=== PATIENT | female | born 1965 | race Caucasian/White ===

== ENCOUNTER 2017-11-19 10:42 | Inpatient (IN) | payer BC, SELFPAY ==
[2017-11-19 12:20] LABS: Absolute Lymphocytes (CBC) 1.5 K/uL (0.7-4.9); Absolute Monocytes 0.7 K/uL (0.1-1.3); Absolute Neutrophil 11.3 K/uL (1.8-8.0); Basophils % 0.5 % (0-1.3); Eosinophils % 0.9 % (0-4.4); Hematocrit 40.8 % (36.0-45.0); Lymphocytes % 10.7 % (15.3-44.8); MCH 26.6 pg (27.0-35.0); MCV 83.8 fL (80-100); Monocytes % 5.2 % (3.3-12.3); RBC Red Blood Cell Count 4.87 M/uL (3.86-4.86)
[2017-11-19 12:29] LABS: Potassium 3.6 mEq/L (3.6-5.0)
[2017-11-19] MEDS ORDERED: CEFTRIAXONE/SWI 1gm 1 GM/10 ML SYR ONE (12:29)
[2017-11-19] MEDS ORDERED: CLINDAMYCIN 900MG/D5W 900 MG/50 ML BAG IV ONE (12:29)
[2017-11-19] MEDS ORDERED: ACETAMINOPHEN 500 MG TAB ONE (12:29)
[2017-11-19] MEDS ORDERED: ACETAMINOPHEN 500 MG TAB PO PRN (12:41)
[2017-11-19] MEDS ORDERED: ONDANSETRON 4 MG/2 ML VIAL IV PRN (12:41)
--- NOTE | 2017-11-19 13:02 | RAD REPORT ---
EXAM DESCRIPTION: [facility] [employer]11/19/2017 12:43 pm CLINICAL HISTORY: Right arm pain COMPARISON: 2017 FINDINGS: The right internal jugular, right subclavian, right cephalic, right axillary, right brach ial, right basilic, right ulnar and right radial veins are generally compressible and demonstrate au gmentation. Doppler demonstrates good flow. IMPRESSION: No evidence of thrombus within the veins of the right upper extremity
[2017-11-19] MEDS ORDERED: PANTOPRAZOLE 40MG TABLET PO ONE (13:04)
--- NOTE | 2017-11-19 13:24 | EDPHYS ---
Physician Documentation [facility] Name: Jerilyn Johnson Age: 52 yrs Sex: Female : 1965 Arrival Date: 11/19/2017 Time: 10:47 Bed 5 Private MD: ED Physician Shaan Schulz HPI: 11/19 13:01 This 52 yrs old Female presents to ER via Ambulatory with complaints of gs CELLULITIS. 13:01 The patient presents with cellulitis of the right arm. Description: erythematous. gs Onset: The symptoms/episode began/occurred 2 day(s) ago, and became worse and became persistent. Associated signs and symptoms: Pertinent positives: erythema, Pertinent negatives: fever. Modifying factors: the symptoms are aggravated by touching. Severity of symptoms: At their worst the symptoms were severe, in the emergency department the symptoms are unchanged. The patient has experienced similar episodes in the past, a few times. 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 - Social history:: Smoking status: Patient/guardian denies using tobacco. ROS: 13:01 All other systems are negative. gs Exam: 13:01 Head/Face: Normocephalic, atraumatic. Eyes: Pupils equal round and reactive to light, gs extra-ocular motions intact. Lids and lashes normal. Conjunctiva and sclera are non-icteric and not injected. Cornea within normal limits. Periorbital areas with no swelling, redness, or edema. ENT: Nares patent. No nasal discharge, no septal abnormalities noted. Tympanic membranes are normal and external auditory canals are clear. Oropharynx with no redness, swelling, or masses, exudates, or evidence of obstruction, uvula midline. Mucous membranes moist. Neck: Trachea midline, no thyromegaly or masses palpated, and no cervical lymphadenopathy. Supple, full range of motion without nuchal rigidity, or vertebral point tenderness. No Meningismus. Chest/axilla: Normal chest wall appearance and motion. Nontender with no deformity. No lesions are appreciated. Cardiovascular: Regular rate and rhythm with a normal S1 and S2. No gallops, murmurs, or rubs. Normal PMI, no JVD. No pulse deficits. Respiratory: Lungs have equal breath sounds bilaterally, clear to auscultation and percussion. No rales, rhonchi or wheezes noted. No increased work of breathing, no retractions or nasal flaring. Abdomen/GI: Soft, non-tender, with normal bowel sounds. No distension or tympany. No guarding or rebound. No evidence of tenderness throughout. Neuro: Awake and alert, GCS 15, oriented to person, place, time, and situation. Cranial nerves II-XII grossly intact. Motor strength 5/5 in all extremities. Sensory grossly intact. Cerebellar exam normal. Normal gait. 13:01 Constitutional: The patient appears alert, awake. 13:01 Skin: cellulitis, that is moderate, on the right arm. 13:01 Musculoskeletal/extremity: ROM: no acute changes, Pulses: are normal with no gs appreciated deficits, Sensation intact. 13:01 Musculoskeletal/extremity: ROM: limited active range of motion due to pain, limited passive range of motion due to pain, in the right arm, Compartment Syndrome exam of affected extremity: is normal. Vital Signs: 11:24 BP 142 / 88; Pulse 106; Resp 16; Temp 98.3(TE); Pulse Ox 100% ; Weight 72.12 kg (R); lk1 Height 5 ft. 3 in. (160.02 cm) (R); Pain 10/10; 12:00 BP 165 / 83; Pulse 93; Resp 16; Pulse Ox 99% ; Pain 10/10; jl7 13:00 BP 140 / 80; Pulse 90; Resp 16; Pulse Ox 100% ; jl7 13:56 BP 133 / 71; Pulse 87; Resp 16; Pulse Ox 100% ; Pain 8/10; jl7 11:24 Body Mass Index 28.17 (72.12 kg, 160.02 cm) lk1 MDM: 11:56 Patient medically screened. 13:01 Differential diagnosis: cellulitis, dvt, lymphangitis. Data reviewed: vital signs, nurses notes. Response to treatment: the patient's symptoms have mildly improved after treatment, and as a result, I will admit patient. 11/19 12:04 Order name: Basic Metabolic Panel; Complete Time: 12:36 11/19 12:04 Order name: Blood Culture Adult (2) 11/19 12:04 Order name: CBC with Diff; Complete Time: 12:36 11/19 12:04 Order name: Procalcitonin; Complete Time: 13:24 11/19 12:47 Order name: Basic Metabolic Panel EDMS 11/19 12:47 Order name: Basic Metabolic Panel EDMS 11/19 12:12 Order name: US Extremity Venous Unilateral Ltd; Complete Time: 13:24 11/19 12:47 Order name: Basic Metabolic Panel EDMS 11/19 12:47 Order name: Basic Metabolic Panel EDMS 11/19 12:47 Order name: CBC with Automated Diff EDMS 11/19 12:47 Order name: CBC with Automated Diff EDMS 11/19 12:47 Order name: CBC with Automated Diff EDMS 11/19 12:47 Order name: CBC with Automated Diff EDMS 11/19 12:04 Order name: Accucheck; Complete Time: 12:33 11/19 12:04 Order name: Cardiac monitoring; Complete Time: 12:33 11/19 12:04 Order name: EKG - Nurse/Tech; Complete Time: 12:33 11/19 12:04 Order name: IV Saline Lock - Large Bore; Complete Time: 12:33 11/19 12:04 Order name: Labs collected and sent; Complete Time: 12:33 11/19 12:04 Order name: O2 Per Protocol; Complete Time: 12:33 11/19 12:04 Order name: O2 Sat Monitoring; Complete Time: 12:33 11/19 12:47 Order name: CONS Pharmacy Consult [facility] 11/19 12:47 Order name: Heart Healthy EDMS Administered Medications: 12:55 Drug: Rocephin - (cefTRIAXone) 1 grams Route: IVPB; Infused Over: 30 mins; Site: left jl7 antecubital; 12:58 Follow up: Response: No adverse reaction; IV Status: Completed infusion jl7 13:00 Drug: Clindamycin 900 mg Route: IVPB; Infused Over: 30 mins; Site: left antecubital; jl7 13:30 Follow up: Response: No adverse reaction; IV Status: Completed infusion 7 13:07 Drug: Acetaminophen 1000 mg Route: PO; jl7 14:00 Follow up: Response: Pain is decreased 13:08 Drug: ProTONIX 40 mg Route: PO; jl7 14:00 Follow up: Response: No adverse reaction jl7 Disposition: 11/19/17 13:24 Hospitalization ordered by Keri Montgomery for Inpatient Admission. Preliminary diagnosis is Cellulitis of right upper limb. - Bed requested for Telemetry/MedSurg (Inpatient). - Status is Inpatient Admission. ae1 - Condition is Stable. - Problem is new. - Symptoms are unchanged. UTI on Admission? No Signatures: Dispatcher [employer] EDMS Bronwyn Forbes Leah, RN RN lk1 Jono Mcmillan RN RN ae1 Jackelny Alford RN RN jl7 Shaan Schulz MD MD gs Corrections: (The following items were deleted from the chart) 14:26 13:24 Hospitalization Ordered by Keri Montgomery MD for Inpatient Admission. Preliminary bd diagnosis is Cellulitis of right upper limb. Bed requested for Telemetry/MedSurg (Inpatient). Status is Inpatient Admission. Condition is Stable. Problem is new. Symptoms are unchanged. UTI on Admission? No. gs 16:28 14:26 11/19/2017 13:24 Hospitalization Ordered by Keri Montgomery MD for Inpatient ae1 Admission. Preliminary diagnosis is Cellulitis of right upper limb. Bed requested for Telemetry/MedSurg (Inpatient). Status is Inpatient Admission. Condition is Stable. Problem is new. Symptoms are unchanged. UTI on Admission? No. bd
--- NOTE | 2017-11-19 13:24 | ER ---
Nurse's Notes [facility] Name: Jerilyn Johnson Age: 52 yrs Sex: Female : 1965 Arrival Date: 11/19/2017 Time: 10:47 Bed 5 Private MD: Diagnosis: Cellulitis of right upper limb Presentation: 11/19 11:24 Presenting complaint: Patient states: I have cellulitis since this morning on my arm lk1 (right). My doctor sent me here to admit me. Transition of care: patient was not received from another setting of care. Onset of symptoms was November 19, 2017 at 08:00. Care prior to arrival: None. 11:24 Method Of Arrival: Ambulatory lk1 11:24 Acuity: IRVIN 3 lk1 11:27 Initial Sepsis Screen: Does the patient meet any 2 criteria? HR > 90 bpm. Does the lk1 patient have a suspected source of infection? Yes:. Triage Assessment: 11:27 General: Appears uncomfortable, Behavior is calm, cooperative, appropriate for age. lk1 Pain: Complains of pain in right arm Pain radiates to neck Pain currently is 10 out of 10 on a pain scale. Derm: Skin is red, Skin temperature is warm red, swelling, heat to right arm. 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 - Social history:: Smoking status: Patient/guardian denies using tobacco. Screenin:00 Abuse screen: Denies threats or abuse. Denies injuries from another. Nutritional jl7 screening: No deficits noted. Tuberculosis screening: No symptoms or risk factors identified. Fall Risk IV access (20 points). Total Braxton Fall Scale indicates No Risk (0-24 pts). Assessment: 12:00 General: Appears in no apparent distress. uncomfortable, Behavior is calm, cooperative, jl7 appropriate for age. Pain: Complains of pain in neck and right arm Pain does not radiate. Pain currently is 10 out of 10 on a pain scale. Pain began 1 day ago. Is continuous. Neuro: Level of Consciousness is awake, alert, obeys commands, Oriented to person, place, time, situation. Cardiovascular: Patient's skin is warm and dry. Respiratory: Airway is patent Respiratory effort is even, unlabored, Respiratory pattern is regular, symmetrical. GI: No signs and/or symptoms were reported involving the gastrointestinal system. : No signs and/or symptoms were reported regarding the genitourinary system. EENT: No signs and/or symptoms were reported regarding the EENT system. Derm: right arm appears red and is warm to touch. 13:00 Reassessment: Patient and/or family updated on plan of care and expected duration. Pain jl7 level reassessed. Patient is alert, oriented x 3, equal unlabored respirations, skin warm/dry/pink. 14:00 Reassessment: Patient and/or family updated on plan of care and expected duration. Pain jl7 level reassessed. Patient is alert, oriented x 3, equal unlabored respirations, skin warm/dry/pink. Patient states feeling better. Vital Signs: 11:24 BP 142 / 88; Pulse 106; Resp 16; Temp 98.3(TE); Pulse Ox 100% ; Weight 72.12 kg (R); lk1 Height 5 ft. 3 in. (160.02 cm) (R); Pain 10/10; 12:00 BP 165 / 83; Pulse 93; Resp 16; Pulse Ox 99% ; Pain 10/10; jl7 13:00 BP 140 / 80; Pulse 90; Resp 16; Pulse Ox 100% ; jl7 13:56 BP 133 / 71; Pulse 87; Resp 16; Pulse Ox 100% ; Pain 8/10; jl7 11:24 Body Mass Index 28.17 (72.12 kg, 160.02 cm) lk1 ED Course: 10:47 Patient arrived in ED. sb2 11:24 Triage completed. lk1 11:28 Arm band placed on left wrist. lk1 11:48 Jackelyn Alford RN is Primary Nurse. jl7 11:49 Shaan Schulz MD is Attending Physician. gs 12:00 Patient has correct armband on for positive identification. Placed in gown. Bed in low jl7 position. Call light in reach. Side rails up X 1. Pulse ox on. NIBP on. Warm blanket given. 12:00 Inserted saline lock: 20 gauge in left antecubital area, using aseptic technique. Blood jl7 collected. 12:06 Initial lab(s) drawn, by me, sent to lab. First set of blood cultures drawn by me. jl7 12:22 Second set of blood cultures drawn. jl7 12:43 US Extremity Venous Unilateral Ltd In Process Unspecified. EDMS 13:23 Keri Montgomery MD is Hospitalizing Provider. 16:27 No provider procedures requiring assistance completed. Patient admitted, IV remains in ae1 place. Administered Medications: 12:55 Drug: Rocephin - (cefTRIAXone) 1 grams Route: IVPB; Infused Over: 30 mins; Site: left jl7 antecubital; 12:58 Follow up: Response: No adverse reaction; IV Status: Completed infusion jl7 13:00 Drug: Clindamycin 900 mg Route: IVPB; Infused Over: 30 mins; Site: left antecubital; jl7 13:30 Follow up: Response: No adverse reaction; IV Status: Completed infusion jl7 13:07 Drug: Acetaminophen 1000 mg Route: PO; jl7 14:00 Follow up: Response: Pain is decreased jl7 13:08 Drug: ProTONIX 40 mg Route: PO; jl7 14:00 Follow up: Response: No adverse reaction jl7 Outcome: 13:24 Decision to Hospitalize by Provider. 16:27 Admitted to Med/surg accompanied by tech, family with patient, via wheelchair, with ae1 chart, Report called to ARIS Dunn 16:27 Condition: stable 16:27 Instructed on the need for admit, Demonstrated understanding of instructions. 16:28 Patient left the ED. ae1 Signatures: Dispatcher [employer] EDMS Rebekah Stevens RN RN lk1 Jono Mcmillan RN RN ae1 Jackelyn Alford RN RN jl7 Shaan Schulz MD MD Dilia Ayala sb2
--- NOTE | 2017-11-19 16:07 | HP ---
Date of Admission: 11/19/2017 Primary Care Physician: Dr. Murillo. Code Status: Full. Chief Complaint: Right arm erythema, swelling. History Of Present Illness: The patient is a 52-year-old female, who is a patient of Dr. Murillo's, however, hospitalist service is covering while he is out of town. The patient has a past medical his tory of breast cancer and lymphedema due to lymph node dissection and multiple episodes of recurrent cellulitis on the right upper extremity, who was in her usual state of health until the day prior to admission, when the patient had sudden onset of erythema, pain, swelling of the right upper extremity . The patient does report some subjective fever and chills. No trauma or insect bites. The patient 's symptoms are constant, moderate, progressively worsening, similar to her previous symptoms of cell ulitis. The patient comes in for further evaluation. Her workup revealed a white count of 13.7 with left shift. Procalcitonin was negative. The patient was started on IV antibiotics and referred for admission. When seen in the ER, the patient was awake, alert, oriented x3, in some mild distress. Past Medical History: History of breast cancer and lymphedema due to lymph node dissection. Surgical History: Lymph node dissection, right-sided mastectomy, . Allergies: TO CODEINE, LEVOFLOXACIN, PENICILLIN, PROMETHAZINE, AND SULFA. Medications: Personally reviewed. Social History: The patient denies any illicit drug use, alcohol use, or tobacco use. The patient i s . Family History: Noncontributory. Denies any history of premature heart disease in the family. Review of Systems: An 11-point system reviewed, negative except as per HPI. Physical Examination: Vital Signs: Blood pressure 142/88, pulse 106, respirations 16, temperature 98.3, and O2 100% on basim m air. General: Awake, alert, oriented x3, in some mild distress due to pain. Slightly ill-appearing femal e, obese. HEENT: Normocephalic, atraumatic. PERRLA. EOMI. Moist mucous membranes. Oropharynx is clear. Co njunctivae anicteric. Neck: Supple. No JVD. Trachea midline. CV: S1, S2. Sinus tachycardia. Peripheral pulses present. No murmurs. Respiratory: Clear to auscultation bilaterally. No wheezing. No stridor. No use of accessory musc les Gastrointestinal: Abdomen is soft, nontender, nondistended. Positive bowel sounds. No guarding or rigidity. Extremities: The patient does have edema of the right upper extremity. No calf tenderness. SKIN: Right upper extremity erythema, warmth and swelling. NEURO: Cranial nerves 2 through 12 intact grossly. No focal neurological deficit. Speech is normal . Strength is 5/5 in bilateral upper lower extremities. Sensation intact to light touch. Psych: Mood is okay. Affect is full. Insight and judgment are good. Laboratory Data: Sodium 136, potassium 3.6, chloride 102, CO2 24, BUN 16, creatinine 0.76, glucose 1 04, and calcium 9.2. Procalcitonin less than 0.05. WBC 13.7, H and H 13 and 40.8, platelets 294, an d neutrophils 82.7%. Ultrasound Doppler, right upper extremity shows no evidence of thrombus within the veins of the right upper extremity. Assessment: A 52-year-old female with; 1.Right upper extremity cellulitis. We will start on IV antibiotics with clindamycin and Rocephin. The patient has multiple allergies. Obtain blood cultures. May be related to chronic lymphedema. Doppler ultrasound is negative for deep venous thrombosis. 2.History of right-sided breast cancer status post mastectomy. 3.History of anxiety and depression. 4.Obesity. 5.Gastrointestinal and deep venous thrombosis prophylaxis with PPI and Lovenox. Plan: Admit the patient to [facility], place as inpatient. AGUS Voice ID: [id number]
[2017-11-19 16:55] VITALS: BMI 29.0
[2017-11-19] MEDS ORDERED: CLINDAMYCIN INJ 900 MG in NA CHLORIDE 0.9% 50 ML IV SCH (17:00)
[2017-11-19] MEDS: ENOXAPARIN 40 MG/0.4 ML SQ SCH (17:25)
[2017-11-19] MEDS: CLINDAMYCIN INJ 900 MG in NA CHLORIDE 0.9% 50 ML IV SCH (17:25)
[2017-11-19] MEDS: NA CHLORIDE 0.9% 1,000 ML IV SCH ×2 (17:25→23:20)
[2017-11-19] MEDS ORDERED: HYDROCODONE/APAP 7.5/325 MG TAB PO PRN (17:56)
[2017-11-19] MEDS ORDERED: PNEUMOCOCCAL VACCINE 0.5 ML IMVAC ONE (20:00)
[2017-11-20] MEDS: CLINDAMYCIN INJ 900 MG in NA CHLORIDE 0.9% 50 ML IV SCH ×3 (00:10→17:50)
[2017-11-20 06:25] LABS: Absolute Lymphocytes (CBC) 1.3 K/uL (0.7-4.9); Absolute Monocytes 0.5 K/uL (0.1-1.3); Absolute Neutrophil 3.4 K/uL (1.8-8.0); Basophils % 0.8 % (0-1.3); Eosinophils % 2.2 % (0-4.4); Hematocrit 34.4 % (36.0-45.0); Lymphocytes % 24.3 % (15.3-44.8); MCH 27.6 pg (27.0-35.0); MCV 84.2 fL (80-100); MPV 9.7 fL (7.6-11.3); Monocytes % 9.7 % (3.3-12.3); RBC Red Blood Cell Count 4.08 M/uL (3.86-4.86)
[2017-11-20] MEDS: CEFTRIAXONE/SWI 1gm 1 GM/10 ML SYR IV SCH (10:24)
[2017-11-20] MEDS: PANTOPRAZOLE 40MG TABLET PO SCH (10:24)
[2017-11-20] MEDS: NA CHLORIDE 0.9% 1,000 ML IV SCH (10:25)
--- NOTE | 2017-11-20 12:32 | PN ---
Date of Progress Note: 11/20/2017 Subjective: The patient is seen and examined. Chart reviewed and case discussed with RN. The patie nt states her arm pain is better. Swelling has improved as has the erythema. No fevers overnight. Review of Systems: Negative except as above. Medications: Reviewed. Physical Examination: Vital Signs: Temperature 97.9, heart rate 96, blood pressure 118/66, respirations 20, O2 97% on room air. General: Awake, alert, oriented x3, in some mild distress. CV: S1, S2. No murmurs. Regular rate and rhythm. Peripheral pulses present. Respiratory: Moving air well bilaterally. No wheezing. Gastrointestinal: Abdomen is soft, nontender, nondistended. Positive bowel sounds. Extremities: No clubbing, cyanosis. Right upper extremity edema. Skin: Right upper extremity erythema, mild tenderness to palpation and swelling. Neurologic: Nonfocal. Laboratory Data: Sodium 138, potassium 4, chloride 109, CO2 of 22, BUN 15, creatinine 0.78, glucose 112, calcium 8.3. WBC 5.4, H and H 11.3 and 34.4, platelets 214, neutrophils 63%. Blood cultures no growth to date. Assessment And Plan: A 52-year-old female with: 1.Right upper extremity cellulitis. Continue IV antibiotics. Follow up on cultures. No growth to date. Doppler ultrasound negative for DVT. 2.History of right-sided breast cancer status post mastectomy. 3.Anxiety with depression, stable. 4.Overweight. BMI 29.1. 5.Gastrointestinal and deep venous thrombosis prophylaxis with PPI and Lovenox. SA/MODL Voice ID: [id number] Report ID: [id number]
[2017-11-20] MEDS: ENOXAPARIN 40 MG/0.4 ML SQ SCH (17:51)
[2017-11-20] MEDS: ESCITALOPRAM 20 MG TAB PO SCH (20:50)
[2017-11-21] MEDS: CLINDAMYCIN INJ 900 MG in NA CHLORIDE 0.9% 50 ML IV SCH ×3 (00:30→16:53)
[2017-11-21 05:50] LABS: Absolute Lymphocytes (CBC) 1.7 K/uL (0.7-4.9); Absolute Monocytes 0.5 K/uL (0.1-1.3); Absolute Neutrophil 2.5 K/uL (1.8-8.0); Basophils % 0.8 % (0-1.3); Eosinophils % 4.9 % (0-4.4); Hematocrit 34.8 % (36.0-45.0); Lymphocytes % 34.2 % (15.3-44.8); MCH 27.5 pg (27.0-35.0); MCV 83.9 fL (80-100); MPV 9.8 fL (7.6-11.3); Monocytes % 10.4 % (3.3-12.3); RBC Red Blood Cell Count 4.15 M/uL (3.86-4.86)
[2017-11-21] MEDS: PANTOPRAZOLE 40MG TABLET PO SCH (09:14)
[2017-11-21] MEDS: CEFTRIAXONE/SWI 1gm 1 GM/10 ML SYR IV SCH (09:15)
--- NOTE | 2017-11-21 14:39 | PN ---
Date of Progress Note: 11/21/2017 Subjective: The patient seen and examined. Chart reviewed. The case discussed with RN. The patien t states she is feeling better, however, still having some swelling, pain, and erythema in her upper extremity. Review of Systems: Negative except as above. Medications: Reviewed. Physical Examination: Vital Signs: Temperature 97, heart rate 75, respirations 20, blood pressure 121/57, O2 94% on room a ir. General: Awake, alert, oriented x3, in some mild distress. CV: S1, S2. Regular rate and rhythm. Peripheral pulses present. Respiratory: Clear to auscultation bilaterally. No wheezing. Gastrointestinal: Abdomen is soft, nontender, nondistended. Positive bowel sounds. Extremities: No clubbing or cyanosis. Right upper extremity has edema. Skin: Right upper extremity erythema, mild swelling, tenderness to palpation, warmth. Neurologic: Nonfocal. Laboratory Data: WBC 4.9, H and H 11.4, 34.8, platelets 236. Sodium 138, potassium 4, chloride 107, CO2 24, BUN 16, creatinine 0.8, glucose 110, calcium 8.7. Blood cultures, no growth to date. Assessment And Plan: A 52-year-old female with; 1.Right upper extremity cellulitis. Continue IV antibiotics. No growth to date on blood cultures. Dopplers negative for deep vein thrombosis. 2.History of right-sided breast cancer status post mastectomy. 3.Anxiety with depression, stable. 4.Overweight, BMI 29. 5.Gastrointestinal and deep venous thrombosis prophylaxis with PPI and Lovenox. Plan: Continue IV antibiotics. Discharge in the next 24-48 hours if continues to improve. We will transfer service to Dr. Murillo in [place].Gaby HUNTER/ARNOLDO Voice ID: [id number] Report ID: [id number]
[2017-11-21] MEDS: ENOXAPARIN 40 MG/0.4 ML SQ SCH (16:53)
[2017-11-21] MEDS: ESCITALOPRAM 20 MG TAB PO SCH (20:47)
[2017-11-22] MEDS: CLINDAMYCIN INJ 900 MG in NA CHLORIDE 0.9% 50 ML IV SCH ×3 (02:12→17:35)
[2017-11-22 05:31] LABS: Absolute Lymphocytes (CBC) 1.8 K/uL (0.7-4.9); Absolute Monocytes 0.6 K/uL (0.1-1.3); Absolute Neutrophil 3.8 K/uL (1.8-8.0); Basophils % 0.7 % (0-1.3); Eosinophils % 3.6 % (0-4.4); Hematocrit 36.6 % (36.0-45.0); Lymphocytes % 27.6 % (15.3-44.8); MCH 27.8 pg (27.0-35.0); MCV 83.9 fL (80-100); MPV 9.6 fL (7.6-11.3); Monocytes % 8.9 % (3.3-12.3); RBC Red Blood Cell Count 4.36 M/uL (3.86-4.86)
[2017-11-22 05:55] LABS: Potassium 4.5 mEq/L (3.6-5.0)
[2017-11-22] MEDS: PANTOPRAZOLE 40MG TABLET PO SCH (10:33)
[2017-11-22] MEDS: CEFTRIAXONE/SWI 1gm 1 GM/10 ML SYR IV SCH (10:34)
--- NOTE | 2017-11-22 17:13 | PN ---
Date of Progress Note: 11/22/2017 Subjective: The patient continues to improve. Today, discomfort and edema is now mainly around the elbow. I will keep her on the same IV antibiotic regimen for today and she should go to be discharge d in the a.m. HR/MODL Voice ID: [id number] Report ID: [id number]
[2017-11-22] MEDS: ENOXAPARIN 40 MG/0.4 ML SQ SCH (17:34)
[2017-11-22] MEDS: ESCITALOPRAM 20 MG TAB PO SCH (20:04)
[2017-11-23] MEDS: CLINDAMYCIN INJ 900 MG in NA CHLORIDE 0.9% 50 ML IV SCH ×3 (00:30→17:58)
[2017-11-23] MEDS: PANTOPRAZOLE 40MG TABLET PO SCH (09:52)
[2017-11-23] MEDS: CEFTRIAXONE/SWI 1gm 1 GM/10 ML SYR IV SCH (09:52)
[2017-11-23 15:21] VITALS: O2SAT 95
[2017-11-23] MEDS: ENOXAPARIN 40 MG/0.4 ML SQ SCH (17:00)
[2017-11-23 17:35] VITALS: BP 130/62; TEMP 98
--- NOTE | 2017-11-23 23:52 | PN ---
Date of Progress Note: 11/23/2017 The patient is improved considerably over the past 24 hours, basically asymptomatic, nontender over t he elbow area, discharged to continue outpatient antibiotics in the form of Rocephin IM in a.m. and t hen restart p.o. medications next day. HR/MODL Voice ID: [id number] Report ID: [id number]
--- NOTE | 2018-01-24 05:02 | DS ---
Date of Discharge: 11/23/2017 Hospital Course: The patient was admitted to the hospital on 11/19. She had presented to the emergen cy room with a very red sore arm. The patient has a long history of recurrent cellulitis of the righ t upper extremity, which basically goes back a number of years when she had breast cancer and a lymph node dissection. She therefore developed some significant lymphedema, as of the past few years has been increasing episodes, she actually has been referred back to [facility] for a possible revisio n therapy. In any event, on this admission, she was placed on usual medication of IV clindamycin and Rocephin, and within 3 or 4 days of her improvement, it was felt she could be discharged on IM Rocep hin and clindamycin p.o. She was discharged in good condition on 11/23. Final Diagnoses: Cellulitis of the right arm secondary to lymphedema, breast cancer by history. HR/MODL Voice ID: [id number] Report ID: [id number]
== END 2017-11-23 19:48 | disposition home or self-care (01) | DRG 603 ==
LOC: ER 10:42 → ERHOLD 13:24 → 2ND 16:14
PROVIDERS: ADMIT Family Medicine; ATTEND Family Medicine
DX: L03.113 Cellulitis of right upper limb (principal); I97.2 Postmastectomy lymphedema syndrome; E66.9 Obesity, unspecified; Z68.29 Body mass index [BMI] 29.0-29.9, adult; F41.8 Other specified anxiety disorders; Z88.2 Allergy status to sulfonamides; Z88.0 Allergy status to penicillin; Z85.3 Personal history of malignant neoplasm of breast
CPT/HCPCS: 36415; 80048; 84145; 85025; 87040; 93971; 94760; 96365; 96375; 99285; J0696; J1650; J7030

== ENCOUNTER 2018-07-31 15:01 | Emergency (ER) | payer BC, SELFPAY ==
[2018-07-31] MEDS ORDERED: CEFTRIAXONE 1000 MG/VIAL ONE (15:39)
[2018-07-31] MEDS ORDERED: CLINDAMYCIN HCL 150 MG CAP ONE (15:39)
[2018-07-31] MEDS ORDERED: LIDOCAINE 1% MPF 5 ML VIAL ONE (15:39)
--- NOTE | 2018-07-31 16:44 | EDPHYS ---
Physician Documentation [facility] Name: Jerilyn Johnson Age: 53 yrs Sex: Female : 1965 Arrival Date: 07/31/2018 Time: 15:04 Bed 7 Private MD: ED Physician Yan Ventura HPI: 07/31 15:25 This 53 yrs old Female presents to ER via Ambulatory with complaints of Arm snw swelling. 15:25 Onset: The symptoms/episode began/occurred suddenly, 2 day(s) ago, and became snw persistent. Associated signs and symptoms: Pertinent positives: low grade fever, edema, tenderness to right arm. The patient has experienced similar episodes in the past, chronically. The patient has not recently seen a physician, the patient's primary care provider is Dr. Dr. Murillo. Pt with right mastectomy, recurrent cellulitis of right arm. Pt states she started Cefdinir last pm but is scared if she doesn't get a whole course of the antibiotics she will need to be admitted again.. Historical: - Allergies: 15:08 Codeine; la1 15:08 Demerol; la1 15:08 Levaquin; la1 15:08 PENICILLINS; la1 15:08 Phenergan; la1 15:08 Sulfa (Sulfonamide Antibiotics); la1 - PMHx: 15:08 Anxiety; BREAST CA; Cellulitis; reflux; la1 - Immunization history:: Adult Immunizations up to date. - Social history:: Smoking status: Patient/guardian denies using tobacco. - Ebola Screening: : No symptoms or risks identified at this time. ROS: 15:24 Constitutional: Negative for fever, chills, and weight loss, Eyes: Negative for injury, snw pain, redness, and discharge, ENT: Negative for injury, pain, and discharge, Neck: Negative for injury, pain, and swelling, Cardiovascular: Negative for chest pain, palpitations, and edema, Respiratory: Negative for shortness of breath, cough, wheezing, and pleuritic chest pain, Abdomen/GI: Negative for abdominal pain, nausea, vomiting, diarrhea, and constipation, Back: Negative for injury and pain, : Negative for injury, bleeding, discharge, and swelling, Skin: Negative for injury, rash, and discoloration, Neuro: Negative for headache, weakness, numbness, tingling, and seizure. 15:24 MS/extremity: Positive for swelling, tenderness, right arm. Exam: 15:23 Constitutional: This is a well developed, well nourished patient who is awake, alert, snw and in no acute distress. Head/Face: Normocephalic, atraumatic. Eyes: Pupils equal round and reactive to light, extra-ocular motions intact. Lids and lashes normal. Conjunctiva and sclera are non-icteric and not injected. Cornea within normal limits. Periorbital areas with no swelling, redness, or edema. ENT: Nares patent. No nasal discharge, no septal abnormalities noted. Tympanic membranes are normal and external auditory canals are clear. Oropharynx with no redness, swelling, or masses, exudates, or evidence of obstruction, uvula midline. Mucous membranes moist. Neck: Trachea midline, no thyromegaly or masses palpated, and no cervical lymphadenopathy. Supple, full range of motion without nuchal rigidity, or vertebral point tenderness. No Meningismus. Chest/axilla: Normal chest wall appearance and motion. Nontender with no deformity. No lesions are appreciated. Cardiovascular: Regular rate and rhythm with a normal S1 and S2. No gallops, murmurs, or rubs. Normal PMI, no JVD. No pulse deficits. Respiratory: Lungs have equal breath sounds bilaterally, clear to auscultation and percussion. No rales, rhonchi or wheezes noted. No increased work of breathing, no retractions or nasal flaring. Abdomen/GI: Soft, non-tender, with normal bowel sounds. No distension or tympany. No guarding or rebound. No evidence of tenderness throughout. Back: No spinal tenderness. No costovertebral tenderness. Full range of motion. Neuro: Awake and alert, GCS 15, oriented to person, place, time, and situation. Cranial nerves II-XII grossly intact. Motor strength 5/5 in all extremities. Sensory grossly intact. Cerebellar exam normal. Normal gait. Psych: Awake, alert, with orientation to person, place and time. Behavior, mood, and affect are within normal limits. 15:23 Musculoskeletal/extremity: ROM: intact in all extremities, Circulation is intact in all extremities. Sensation intact. Compartment Syndrome exam of affected extremity: is normal. 15:23 Skin: Appearance: normal except for affected area, splotchy coloration of right upper arm/elbow. Vital Signs: 15:10 BP 122 / 79; Pulse 99; Resp 18; Temp 99.0; Pulse Ox 98% ; Weight 73.48 kg; Height 5 ft. la1 3 in. (160.02 cm); Pain 4/10; 15:10 Body Mass Index 28.70 (73.48 kg, 160.02 cm) la1 MDM: 15:30 Patient medically screened. snw 16:45 Data reviewed: vital signs, nurses notes. Data interpreted: Pulse oximetry: on room air snw is 98 %. Interpretation: normal. Counseling: I had a detailed discussion with the patient and/or guardian regarding: the historical points, exam findings, and any diagnostic results supporting the discharge/admit diagnosis, radiology results, the need for outpatient follow up, to return to the emergency department if symptoms worsen or persist or if there are any questions or concerns that arise at home. Special discussion: Based on the history and exam findings, there is no indication for further emergent testing or inpatient evaluation. I discussed with the patient/guardian the need to see the primary care provider for further evaluation of the symptoms. 07/31 15:21 Order name: Extremity Venous Uni Ltd ; Complete Time: 17:00 snw Administered Medications: 15:46 Drug: Clindamycin 300 mg Route: PO; sg 15:46 Drug: Rocephin (cefTRIAXone) 1 grams Route: IM; Site: right ventrogluteal; sg Disposition: 17:45 Co-signature as Attending Physician, Yan Ventura MD. rn Disposition: 07/31/18 16:43 Discharged to Home. Impression: Lymphedema, not elsewhere classified, Cellulitis of right upper limb. - Condition is Stable. - Discharge Instructions: Cellulitis, Adult, Lymphedema, Heat Therapy. - Prescriptions for cefdinir 300 mg Oral capsule - take 1 capsule by ORAL route every 12 hours for 10 days; 20 capsule. Clindamycin HCl 300 mg Oral Capsule - take 1 capsule by ORAL route every 6 hours for 10 days; 40 capsule. - Work release form, Medication Reconciliation Form, Thank You Letter, Antibiotic Education, Prescription Opioid Use form. - Follow up: Private Physician; When: 1 - 2 days; Reason: Recheck today's complaints, Continuance of care, Re-evaluation by your physician. Follow up: Emergency Department; When: As needed; Reason: Worsening of condition. Signatures: Dispatcher [employer] EDMS David Sexton RN RN sg Dolores Cooper, MONORAIL OPERATOR-C MONORAIL OPERATOR-Csnw Yan Ventura MD MD rn Attema, Lee, RN RN la1 Sangita Spear RN RN Corrections: (The following items were deleted from the chart) 16:53 16:43 07/31/2018 16:43 Discharged to Home. Impression: Lymphedema, not elsewhere hb classified; Cellulitis of right upper limb. Condition is Stable. Forms are Medication Reconciliation Form, Thank You Letter, Antibiotic Education, Prescription Opioid Use. Follow up: Private Physician; When: 1 - 2 days; Reason: Recheck today's complaints, Continuance of care, Re-evaluation by your physician. Follow up: Emergency Department; When: As needed; Reason: Worsening of condition. snw
--- NOTE | 2018-07-31 16:44 | ER ---
Nurse's Notes [facility] Name: Jerilyn Johnson Age: 53 yrs Sex: Female : 1965 Arrival Date: 07/31/2018 Time: 15:04 Bed 7 Private MD: Diagnosis: Lymphedema, not elsewhere classified;Cellulitis of right upper limb Presentation: 07/31 15:09 Presenting complaint: Patient states: I had right mastectomy and I have no lymph nodes la1 in my right arm and i am getting redness and swelling, my doctor told me I always need to go to the hospital for antibiotics whenever that happens. Transition of care: patient was not received from another setting of care. Onset of symptoms was July 31, 2018. Risk Assessment: Do you want to hurt yourself or someone else? Patient reports no desire to harm self or others. Initial Sepsis Screen: Does the patient meet any 2 criteria? No. Patient's initial sepsis screen is negative. Does the patient have a suspected source of infection? No. Patient's initial sepsis screen is negative. Care prior to arrival: None. 15:09 Method Of Arrival: Ambulatory la1 15:09 Acuity: IRVIN 3 la1 Historical: - Allergies: 15:08 Codeine; la1 15:08 Demerol; la1 15:08 Levaquin; la1 15:08 PENICILLINS; la1 15:08 Phenergan; la1 15:08 Sulfa (Sulfonamide Antibiotics); la1 - PMHx: 15:08 Anxiety; BREAST CA; Cellulitis; reflux; la1 - Immunization history:: Adult Immunizations up to date. - Social history:: Smoking status: Patient/guardian denies using tobacco. - Ebola Screening: : No symptoms or risks identified at this time. Vital Signs: 15:10 BP 122 / 79; Pulse 99; Resp 18; Temp 99.0; Pulse Ox 98% ; Weight 73.48 kg; Height 5 ft. la1 3 in. (160.02 cm); Pain 4/10; 15:10 Body Mass Index 28.70 (73.48 kg, 160.02 cm) la1 ED Course: 15:04 Patient arrived in ED. mr 15:10 Triage completed. la1 15:10 Arm band placed on right wrist. la1 15:15 Dolores Cooper FNP-C is PHCP. snw 15:15 Yan Ventura MD is Attending Physician. snw 15:26 David Sexton, RN is Primary Nurse. sg 16:10 Ultrasound completed. Patient tolerated well. sg3 16:38 Extremity Venous Uni Ltd US In Process Unspecified. EDMS Administered Medications: 15:46 Drug: Clindamycin 300 mg Route: PO; sg 15:46 Drug: Rocephin (cefTRIAXone) 1 grams Route: IM; Site: right ventrogluteal; sg Outcome: 16:43 Discharge ordered by . snw 16:53 Patient left the ED. Signatures: Dispatcher [employer] EDMS David Sexton, RN RN Dolores Liao FNP-C SPINNING LATHE OPERATOR-Maria M Sherry RodriguezCam laughlin RN RN laSangita Altman RN RN Pema Baires sg3
--- NOTE | 2018-07-31 16:49 | RAD REPORT ---
EXAM DESCRIPTION: USExtremity Venous Uni Ltd07/31/2018 4:39 pm CLINICAL HISTORY: Right arm swelling COMPARISON: November 2017 FINDINGS: The right internal jugular, right subclavian, right cephalic, right axillary, right brach ial, right basilic veins are generally compressible and demonstrate augmentation. Doppler demonstrate s good flow. IMPRESSION: No evidence of thrombus within the veins of the right upper extremity
[2018-07-31 17:03] VITALS: BP 122/79; TEMP 99; O2SAT 98
== END 2018-07-31 16:53 | disposition home or self-care (01) ==
LOC: ER 15:01
DX: L03.113 Cellulitis of right upper limb (principal); I89.0 Lymphedema, not elsewhere classified; Z85.3 Personal history of malignant neoplasm of breast; Z88.0 Allergy status to penicillin; Z88.1 Allergy status to other antibiotic agents; Z88.2 Allergy status to sulfonamides; Z88.5 Allergy status to narcotic agent; Z88.8 Allergy status to other drugs, medicaments and biological substances
CPT/HCPCS: 93971; 96372; 99283

== ENCOUNTER 2018-10-25 15:25 | Inpatient (IN) | payer BC ==
[2018-10-25 17:02] LABS: Absolute Monocytes 0.6 K/uL (0.1-1.3); Absolute Neutrophil 4.7 K/uL (1.8-8.0); Basophils % 0.7 % (0-1.3); Eosinophils % 1.8 % (0-4.4); Hematocrit 38.5 % (36.0-45.0); MPV 9.6 fL (7.6-11.3); Monocytes % 8.6 % (3.3-12.3)
[2018-10-25 17:43] VITALS: BMI 29.4
[2018-10-25] MEDS: CLINDAMYCIN INJ 900 MG in NA CHLORIDE 0.9% 50 ML IV SCH (18:38)
[2018-10-25] MEDS ORDERED: ACETAMINOPHEN 500 MG TAB PO PRN (19:51)
[2018-10-25 21:18] LABS: Urine Appearance CLEAR; Urine Bilirubin NEGATIVE (NEG); Urine Blood NEGATIVE (NEG); Urine Color YELLOW; Urine Glucose NEGATIVE (NEG); Urine Protein NEGATIVE (NEG); Urine Specific Gravity 1.025 (1.005-1.030); Urine Urobilinogen 0.2 mg/dL (0.2-1.0)
[2018-10-25 21:23] LABS: Urine Microscopic Reflex ORDER UMIC
[2018-10-25 21:32] LABS: Urine Bacteria <20 /HPF (<20); Urine Culture Reflex Order NOT NEEDED; Urine RBC NONE SEEN /HPF (NONE SEEN)
[2018-10-26] MEDS: CLINDAMYCIN INJ 900 MG in NA CHLORIDE 0.9% 50 ML IV SCH ×5 (00:13→23:03)
[2018-10-26 06:31] LABS: Potassium 3.9 mmol/L (3.5-5.1)
[2018-10-26] MEDS: SODIUM CHLORIDE 0.9% 10ML INJ IV SCH (08:34)
[2018-10-26] MEDS: CEFTRIAXONE/SWI 1gm 1 GM/10 ML SYR IVP SCH ×3 (08:35→20:08)
[2018-10-26] MEDS ORDERED: ESCITALOPRAM 20 MG TAB PO SCH ×2 (09:00→21:00)
[2018-10-26] MEDS ORDERED: PANTOPRAZOLE 40 MG INJ IV SCH ×2 (09:00→21:00)
[2018-10-26 11:25] VITALS: O2SAT 97
--- NOTE | 2018-10-26 16:21 | P.PN ---
Subjective Date of Service: 10/26/18 Subjective: Tolerating diet, Ambulating, Improving, Doing well Review of Systems 10-point ROS is otherwise unremarkable Physical Examination - Vital Signs Temperature: 97.1 F Blood Pressure: 113/60 Pulse: 78 Respirations: 78 Pulse Ox (%): 97 - Physical Exam General: Alert, In no apparent distress HEENT: Atraumatic, PERRLA, EOMI Neck: Supple, JVD not distended Respiratory: Clear to auscultation bilaterally, Normal air movement Cardiovascular: Regular rate/rhythm, Normal S1 S2 Gastrointestinal: Normal bowel sounds, No tenderness Musculoskeletal: No tenderness Integumentary: No rashes, Tenderness/swelling, Warmth, Other (No erythema noted now ) Neurological: Normal speech, Normal tone, Normal affect Lymphatics: No axilla or inguinal lymphadenopathy - Studies Laboratory Data (last 24 hrs) 10/26/18 05:32: Sodium 145, Potassium 3.9, BUN 20 H, Creatinine 0.91, Glucose 113 H 10/25/18 16:46: WBC 7.6, Hgb 13.3, Hct 38.5, Plt Count 278 Medications List Reviewed: Yes Assessment And Plan - Current Problems (Diagnosis) (1) Cellulitis of right upper extremity Onset Date: 07/07/16 Current Visit: No Status: Acute Plan: Cellulitis of the right upper extremity most likely secondary to lymphedema secondary to mastectomy -IV Rocephin and clindamycin for right now -elevate arm to help with the swelling -will continue antibiotics for another 24 hr. If improving anticipate discharge in 24-48 hr after (2) History of breast cancer Current Visit: No Status: Chronic Plan: Status post mastectomy. (3) GERD (gastroesophageal reflux disease) Onset Date: 07/07/16 Current Visit: No Status: Chronic Plan: On Protonix Qualifiers: Esophagitis presence: without esophagitis Qualified Code(s): K21.9 - Gastro -esophageal reflux disease without esophagitis - Plan Pending clinical improvement at this time. Will continue with IV antibiotics for another 24 hr. Will follow up with cultures. Anticipate discharge in 24- 48 hr if improvement noted Discharge Plan: Home Plan to discharge in: 48 Hours - Code Status/Comfort Care Code Status Assessed: Yes Critical Care: No
--- NOTE | 2018-10-27 04:11 | HP ---
Date of Admission: 10/25/2018 Chief Complaint: Painful swollen arm. History Of Present Illness: The patient has had a long history of recurrent cellulitis and lymphedem a in her arms secondary to breast cancer surgery a number of years ago. She has rapid approach of ce llulitis once it gets started and this is consistent with that. She was started on antibiotics 2 day s before admission orally and then given shots and oral medication the day before admission. However , the erythema subsided, but the pain became increasingly more severe as well as the chills and fever and general malaise often associated with cellulitis. She was therefore admitted for more intensive care. In the past, she required a combination of Rocephin IV and clindamycin IV. Past History: As above. The patient has also been seen followup for possible lymphatic d rainage procedure. Social History: Nonsmoker, nondrinker. Family History: Noncontributory. Physical Examination: General: The patient is well built, middle aged female. Vital Signs: Stable. Head and Neck: Normocephalic. Pupils equal and reactive to light and accommodation. Fundi negative . Trachea midline. Thyroid not palpable. ENT negative. sounds normal. Peripheral puls es present and equal bilaterally. Abdomen: No organomegaly. Bowel sounds present. Extremities: All extremities normal except for the left upper arm, which shows patchy areas of eryth jina above and below the elbow and tenderness over the area, also more edematous than usual. Rectal: Deferred. Pelvic: Deferred. Impression: Cellulitis of the arm and lymphedema of the arm secondary to breast surgical procedure. Plan: The patient will be admitted, placed on IV antibiotics in the form of Rocephin and clindamycin , treated symptomatically for the nausea and pain. The patient has had frequent Dopplers when she co mes into the emergency room to rule out any DVTs involving usually takes 2-3 days of an in tensive improve enough that she can maintain status quo on p.o. medication. HR/ARNOLDO Voice ID: [id number]
[2018-10-27] MEDS: CLINDAMYCIN INJ 900 MG in NA CHLORIDE 0.9% 50 ML IV SCH ×2 (05:20→11:54)
[2018-10-27] MEDS: SODIUM CHLORIDE 0.9% 10ML INJ IV SCH (09:00)
[2018-10-27] MEDS: CEFTRIAXONE/SWI 1gm 1 GM/10 ML SYR IVP SCH (09:10)
[2018-10-27 12:29] VITALS: BP 142/65; TEMP 98
--- NOTE | 2018-10-27 19:54 | PN ---
Subjective: The patient showed considerable improvement, no longer tender and no erythema. Vital si gns stable, was felt well enough to be able to be discharged. Continue on oral antibiotics in good c ondition. Follow up with me within the week. HR/MODL Voice ID: [id number] Report ID: [id number]
== END 2018-10-27 12:53 | disposition home or self-care (01) | DRG 603 ==
LOC: 2ND 15:32 → OBSVTOIN 10-27 08:13
PROVIDERS: ADMIT Family Medicine; ATTEND Family Medicine
DX: L03.114 Cellulitis of left upper limb (principal); I97.2 Postmastectomy lymphedema syndrome; Y83.8 Other surgical procedures as the cause of abnormal reaction of the patient, or of later complication, without mention of misadventure at the time of the procedure; K21.9 Gastro-esophageal reflux disease without esophagitis; Z85.3 Personal history of malignant neoplasm of breast
CPT/HCPCS: 36415; 80048; 81003; 81015; 85025; C9113; G0378; J0696

== ENCOUNTER 2019-02-05 13:38 | Emergency (ER) | payer BC ==
[2019-02-05] MEDS ORDERED: KETOROLAC 30 MG/ML INJ ONE (14:12)
[2019-02-05] MEDS ORDERED: CLINDAMYCIN 600MG/D5W 600 MG/50 ML BAG IV ONE (14:12)
[2019-02-05] MEDS ORDERED: PANTOPRAZOLE 40 MG INJ ONE (14:12)
[2019-02-05] MEDS ORDERED: NA CHLORIDE 0.9% 1,000 ML ONE (14:12)
[2019-02-05] MEDS ORDERED: WATER FOR INJ,STERILE 10 ML ONE (14:14)
[2019-02-05 14:19] LABS: Absolute Lymphocytes (CBC) 1.8 K/uL (0.7-4.9); Basophils % 0.9 % (0-1.3); Hematocrit 42.5 % (36.0-45.0); Lymphocytes % 20.7 % (15.3-44.8); MPV 10.1 fL (7.6-11.3); RBC Red Blood Cell Count 4.99 M/uL (3.86-4.86)
[2019-02-05] MEDS ORDERED: ACETAMINOPHEN 500 MG TAB ONE (14:23)
[2019-02-05 14:56] LABS: Potassium 4.9 mmol/L (3.5-5.1)
--- NOTE | 2019-02-05 15:36 | RAD REPORT ---
EXAM DESCRIPTION: US - Extremity Venous Uni Ltd - 02/05/2019 2:55 pm CLINICAL HISTORY: Right arm pain and swelling COMPARISON: None. TECHNIQUE: Real-time sonographic evaluation of the right upper extremity deep venous systems was per formed. FINDINGS: Normal compressibility, flow augmentation, phasic flow and spontaneous flow are identified in the right upper extremity deep venous system. No intraluminal filling defects seen. Internal jugu lar and subclavian veins are normal as well. IMPRESSION: No DVT in the right upper extremity.
--- NOTE | 2019-02-05 16:57 | ER ---
Nurse's Notes [facility] Name: Jerilyn Johnson Age: 53 yrs Sex: Female : 1965 Arrival Date: 02/05/2019 Time: 13:42 Bed 27 Private MD: Diagnosis: Cellulitis of right upper limb;Lymphedema, not elsewhere classified Presentation: 02/05 13:48 Presenting complaint: Patient states: i have hx of lymphadenopathy on my R arm; i hj noticed that my R arm started to swell and turned red a while ago; reports fever and nausea;. Transition of care: patient was not received from another setting of care. Onset of symptoms was February 05, 2019. Risk Assessment: Do you want to hurt yourself or someone else? Patient reports no desire to harm self or others. Initial Sepsis Screen: Does the patient meet any 2 criteria? No. Patient's initial sepsis screen is negative. Does the patient have a suspected source of infection? No. Patient's initial sepsis screen is negative. Care prior to arrival: None. 13:48 Method Of Arrival: Ambulatory 13:48 Acuity: IRVIN 3 hj STACK CLERK: 15:03 LMP N/A - Post-menopause ca1 Historical: - Allergies: 13:50 Codeine; 13:50 Demerol; hj 13:50 Levaquin; 13:50 PENICILLINS; 13:50 Phenergan; hj 13:50 Sulfa (Sulfonamide Antibiotics); hj - PMHx: 13:50 Anxiety; BREAST CA; Cellulitis; reflux; hj - PSHx: 13:50 breast; hj - Immunization history:: Adult Immunizations up to date. - Social history:: Smoking status: Patient/guardian denies using tobacco. - Ebola Screening: : Patient negative for fever greater than or equal to 101.5 degrees Fahrenheit, and additional compatible Ebola Virus Disease symptoms Patient denies exposure to infectious person Patient denies travel to an Ebola-affected area in the 21 days before illness onset No symptoms or risks identified at this time. Screenin:05 Abuse screen: Denies threats or abuse. Denies injuries from another. Nutritional ca1 screening: No deficits noted. Tuberculosis screening: No symptoms or risk factors identified. Fall Risk IV access (20 points). Total Braxton Fall Scale indicates No Risk (0-24 pts). Assessment: 14:05 General: Appears in no apparent distress. uncomfortable, Behavior is calm, cooperative, ca1 appropriate for age. Pain: Complains of pain in right arm Pain does not radiate. Pain currently is 8 out of 10 on a pain scale. Quality of pain is described as burning, Is continuous. Neuro: Level of Consciousness is awake, alert, obeys commands, Oriented to person, place, time, situation. Cardiovascular: Heart tones S1 S2 present Capillary refill < 3 seconds Patient's skin is warm and dry. Pulses are all present. Respiratory: Airway is patent Respiratory effort is even, unlabored, Respiratory pattern is regular, symmetrical, Breath sounds are clear bilaterally. GI: Abdomen is round non-distended, Bowel sounds present X 4 quads. Abd is soft and non tender X 4 quads. : No deficits noted. No signs and/or symptoms were reported regarding the genitourinary system. EENT: No deficits noted. No signs and/or symptoms were reported regarding the EENT system. Derm: Skin is intact, is healthy with good turgor, Skin is pink, warm \T\ dry. Musculoskeletal: Circulation, motion, and sensation intact. Capillary refill < 3 seconds, Range of motion: intact in all extremities, Swelling present in right arm. 15:06 Reassessment: Patient appears in no apparent distress at this time. Patient and/or ca1 family updated on plan of care and expected duration. Pain level reassessed. Patient is alert, oriented x 3, equal unlabored respirations, skin warm/dry/pink. 16:36 Reassessment: Patient appears in no apparent distress at this time. Patient and/or ca1 family updated on plan of care and expected duration. Pain level reassessed. Patient is alert, oriented x 3, equal unlabored respirations, skin warm/dry/pink. 17:01 Reassessment: IV antibiotic given. Kept for observation. ca1 17:29 Reassessment: Patient appears in no apparent distress at this time. Patient is alert, ca1 oriented x 3, equal unlabored respirations, skin warm/dry/pink. Vital Signs: 13:50 BP 140 / 76; Pulse 87; Resp 18; Temp 98.4(O); Pulse Ox 98% on R/A; Weight 77.11 kg; hj Height 5 ft. 3 in. (160.02 cm); Pain 6/10; 14:30 BP 126 / 86; Pulse 91; Resp 15 S; Pulse Ox 100% on R/A; ca1 15:30 BP 143 / 99; Pulse 71; Resp 16 S; Pulse Ox 99% on R/A; ca1 16:30 BP 142 / 82; Pulse 73; Resp 16 S; Temp 99(O); Pulse Ox 97% on R/A; ca1 13:50 Body Mass Index 30.11 (77.11 kg, 160.02 cm) ED Course: 13:42 Patient arrived in ED. mr 13:49 Triage completed. hj 13:50 Arm band placed on left wrist. hj 13:52 Loly Yates, RN is Primary Nurse. ca1 13:54 Dolores Cooper FNP-C is PHCP. snw 13:54 Yan Ventura MD is Attending Physician. snw 14:05 Patient has correct armband on for positive identification. Bed in low position. Call ca1 light in reach. Side rails up X 1. Pulse ox on. NIBP on. Warm blanket given. Ice pack on R arm. 14:13 No provider procedures requiring assistance completed. Inserted saline lock: 22 gauge ca1 in left antecubital area, using aseptic technique. Blood collected. 14:55 Ultrasound completed. Patient tolerated well. Notified ED Physician dolores. sg3 14:55 US Extremity Venous Unilateral Ltd In Process Unspecified. EDMS 17:29 IV discontinued, intact, bleeding controlled, No redness/swelling at site. Pressure ca1 dressing applied. Administered Medications: 14:13 Drug: NS 0.9% 1000 ml Route: IV; Rate: 75 ml/hr; Site: left antecubital; ca1 17:28 Follow up: IV Status: Completed infusion ca1 14:14 Drug: ProTONIX 40 mg Route: IVP; Site: left antecubital; ca1 14:55 Follow up: Response: No adverse reaction ca1 14:20 Drug: Clindamycin 600 mg Route: IVPB; Infused Over: 30 mins; Site: left antecubital; ca1 14:55 Follow up: Response: No adverse reaction; IV Status: Completed infusion ca1 14:23 Not Given (Patient Refused): TORadol - Ketorolac 15 mg IVP once ca1 14:25 Drug: Tylenol 1000 mg Route: PO; ca1 14:55 Follow up: Response: No adverse reaction; Pain is decreased ca1 17:00 Drug: Rocephin 1 grams Route: IV; Rate: calculated rate; Site: left antecubital; ca1 17:27 Follow up: Response: No adverse reaction; IV Status: Completed infusion ca1 Outcome: 16:55 Discharge ordered by MD. suazo 17:29 Discharged to home ambulatory. ca1 17:29 Condition: stable 17:29 Discharge instructions given to patient, Instructed on discharge instructions, follow up and referral plans. medication usage, Demonstrated understanding of instructions, follow-up care, medications, Prescriptions given X 1. 17:30 Patient left the ED. ca1 Signatures: Dispatcher [employer] EDMS Dolores Cooper, VIDEO TAPE DUPLICATOR-C VIDEO TAPE DUPLICATOR-Csnw Michael Sherry mr Jamie Armendariz, RN RN Pema Baires 3 Loly Yates RN RN ca1 Corrections: (The following items were deleted from the chart) 17:31 16:30 BP 142 / 82; Pulse 73bpm; Resp 16bpm; Spontaneous; Pulse Ox 97% RA; ca1 ca1
[2019-02-05] MEDS ORDERED: CEFTRIAXONE/SWI 1gm 1 GM/10 ML SYR ONE (16:58)
--- NOTE | 2019-02-05 16:58 | EDPHYS ---
Physician Documentation [facility] Name: Jerilyn Johnson Age: 53 yrs Sex: Female : 1965 Arrival Date: 02/05/2019 Time: 13:42 Bed 27 Private MD: ED Physician Yan Ventura HPI: 02/05 14:05 This 53 yrs old Female presents to ER via Ambulatory with complaints of Arm snw swelling. 14:05 The patient or guardian complains of pain, swelling, tenderness, area of warmth and snw erythema to right medial elbow/forearm . 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 - Social history:: Smoking status: Patient/guardian denies using tobacco. - Ebola Screening: : Patient negative for fever greater than or equal to 101.5 degrees Fahrenheit, and additional compatible Ebola Virus Disease symptoms Patient denies exposure to infectious person Patient denies travel to an Ebola-affected area in the 21 days before illness onset No symptoms or risks identified at this time. ROS: 14:04 Constitutional: Negative for fever and weight loss, + chills and "just don't feel good" snw Eyes: Negative for injury, pain, redness, and discharge, ENT: Negative for injury, pain, and discharge, Neck: Negative for injury, pain, and swelling, Cardiovascular: Negative for chest pain, palpitations, and edema, Respiratory: Negative for shortness of breath, cough, wheezing, and pleuritic chest pain, Abdomen/GI: Negative for abdominal pain, nausea, vomiting, diarrhea, and constipation, Back: Negative for injury and pain, : Negative for injury, bleeding, discharge, and swelling, Skin: Negative for injury, rash, and discoloration, Neuro: Negative for headache, weakness, numbness, tingling, and seizure. Exam: 14:01 Constitutional: This is a well developed, well nourished patient who is awake, alert, snw and in no acute distress. Head/Face: Normocephalic, atraumatic. Eyes: Pupils equal round and reactive to light, extra-ocular motions intact. Lids and lashes normal. Conjunctiva and sclera are non-icteric and not injected. Cornea within normal limits. Periorbital areas with no swelling, redness, or edema. ENT: Nares patent. No nasal discharge, no septal abnormalities noted. Tympanic membranes are normal and external auditory canals are clear. Oropharynx with no redness, swelling, or masses, exudates, or evidence of obstruction, uvula midline. Mucous membranes moist. Neck: Trachea midline, no thyromegaly or masses palpated, and no cervical lymphadenopathy. Supple, full range of motion without nuchal rigidity, or vertebral point tenderness. No Meningismus. Chest/axilla: Normal chest wall appearance and motion. Nontender with no deformity. No lesions are appreciated. Cardiovascular: Regular rate and rhythm with a normal S1 and S2. No gallops, murmurs, or rubs. Normal PMI, no JVD. No pulse deficits. Respiratory: Lungs have equal breath sounds bilaterally, clear to auscultation and percussion. No rales, rhonchi or wheezes noted. No increased work of breathing, no retractions or nasal flaring. Abdomen/GI: Soft, non-tender, with normal bowel sounds. No distension or tympany. No guarding or rebound. No evidence of tenderness throughout. Back: No spinal tenderness. No costovertebral tenderness. Full range of motion. Neuro: Awake and alert, GCS 15, oriented to person, place, time, and situation. Cranial nerves II-XII grossly intact. Motor strength 5/5 in all extremities. Sensory grossly intact. Cerebellar exam normal. Normal gait. Psych: Awake, alert, with orientation to person, place and time. Behavior, mood, and affect are within normal limits. 14:01 Musculoskeletal/extremity: Extremities: grossly normal except: noted in the right upper extremity: pain, swelling, chronic lymphedema , Circulation is intact in all extremities. 14:01 Skin: Appearance: normal except for affected area, cellulitis, that is moderate, well demarcated, on the right elbow and palmar aspect of right forearm. Vital Signs: 13:50 BP 140 / 76; Pulse 87; Resp 18; Temp 98.4(O); Pulse Ox 98% on R/A; Weight 77.11 kg; hj Height 5 ft. 3 in. (160.02 cm); Pain 6/10; 14:30 BP 126 / 86; Pulse 91; Resp 15 S; Pulse Ox 100% on R/A; ca1 15:30 BP 143 / 99; Pulse 71; Resp 16 S; Pulse Ox 99% on R/A; ca1 16:30 BP 142 / 82; Pulse 73; Resp 16 S; Temp 99(O); Pulse Ox 97% on R/A; ca1 13:50 Body Mass Index 30.11 (77.11 kg, 160.02 cm) hj MDM: 14:01 Data reviewed: vital signs, nurses notes. Data interpreted: Pulse oximetry: on room air snw is 98 %. Interpretation: normal. Counseling: I had a detailed discussion with the patient and/or guardian regarding: the historical points, exam findings, and any diagnostic results supporting the discharge/admit diagnosis, the presence of at least one elevated blood pressure reading (>120/80) during this emergency department visit, sees Dr. Murillo. 14:23 Patient medically screened. snw 02/05 14:01 Order name: CBC with Diff; Complete Time: 14:30 snw 02/05 14:01 Order name: Blood Culture Adult (2) snw 02/05 13:55 Order name: US Extremity Venous Unilateral Ltd; Complete Time: 15:48 snw 02/05 14:01 Order name: Chem 7; Complete Time: 14:57 snw Administered Medications: 14:13 Drug: NS 0.9% 1000 ml Route: IV; Rate: 75 ml/hr; Site: left antecubital; ca1 17:28 Follow up: IV Status: Completed infusion ca1 14:14 Drug: ProTONIX 40 mg Route: IVP; Site: left antecubital; ca1 14:55 Follow up: Response: No adverse reaction ca1 14:20 Drug: Clindamycin 600 mg Route: IVPB; Infused Over: 30 mins; Site: left antecubital; ca1 14:55 Follow up: Response: No adverse reaction; IV Status: Completed infusion ca1 14:23 Not Given (Patient Refused): TORadol - Ketorolac 15 mg IVP once ca1 14:25 Drug: Tylenol 1000 mg Route: PO; ca1 14:55 Follow up: Response: No adverse reaction; Pain is decreased ca1 17:00 Drug: Rocephin 1 grams Route: IV; Rate: calculated rate; Site: left antecubital; ca1 17:27 Follow up: Response: No adverse reaction; IV Status: Completed infusion ca1 Disposition: 18:32 Co-signature as Attending Physician, Yan Ventura MD. rn Disposition: 02/05/19 16:55 Discharged to Home. Impression: Cellulitis of right upper limb, Lymphedema, not elsewhere classified. - Condition is Stable. - Discharge Instructions: Cellulitis, Adult, Lymphedema, Heat Therapy. - Prescriptions for Clindamycin HCl 300 mg Oral Capsule - take 1 capsule by ORAL route every 6 hours for 10 days; 40 capsule. - Medication Reconciliation Form, Thank You Letter, Antibiotic Education, Prescription Opioid Use form. - Follow up: Private Physician; When: 2 - 3 days; Reason: Recheck today's complaints, Continuance of care, Re-evaluation by your physician. Follow up: Emergency Department; When: As needed; Reason: Worsening of condition. Signatures: Dispatcher [employer] EDMS Dolores Cooper, HOT WALKER-C HOT WALKER-Csnw Yan Ventura MD MD rn Joaquin, Henry, RN RN Loly Yates RN RN ca1 Corrections: (The following items were deleted from the chart) 17:30 16:55 02/05/2019 16:55 Discharged to Home. Impression: Cellulitis of right upper limb; ca1 Lymphedema, not elsewhere classified. Condition is Stable. Forms are Medication Reconciliation Form, Thank You Letter, Antibiotic Education, Prescription Opioid Use. Follow up: Private Physician; When: 2 - 3 days; Reason: Recheck today's complaints, Continuance of care, Re-evaluation by your physician. Follow up: Emergency Department; When: As needed; Reason: Worsening of condition. snw
[2019-02-05 17:42] VITALS: TEMP 98.4
[2019-02-05 17:45] VITALS: BP 142/82; O2SAT 97
== END 2019-02-05 17:30 | disposition home or self-care (01) ==
LOC: ER 13:38
DX: L03.113 Cellulitis of right upper limb (principal); I89.0 Lymphedema, not elsewhere classified; F41.9 Anxiety disorder, unspecified; C50.919 Malignant neoplasm of unspecified site of unspecified female breast; Z88.1 Allergy status to other antibiotic agents; Z88.5 Allergy status to narcotic agent; Z88.0 Allergy status to penicillin; Z88.2 Allergy status to sulfonamides
CPT/HCPCS: 96367; 96361; 87040 ×2; 85025; 80048; 36415; 87205; 93971; 96375; 99284; C9113; J0696; J7030

== ENCOUNTER 2019-12-08 19:23 | Inpatient (IN) | payer BC ==
--- OUTSIDE RECORDS SUMMARY | 2019-12-08 19:26 | XMS REPORT | Continuity of Care Document ---
:1965 Author Organization [facility] t Address [address] [place] [address] Dr. Stallworth [address] [place] [id number] Care Team Providers Name Role Phone Unavailable Unavailable Unavailable Problems This patient has no known problems. Allergies, Adverse Reactions, Alerts This patient has no known allergies or adverse reactions. Medications This patient has no known medications. Procedures This patient has no known procedures. Results This patient has no known results.
[2019-12-08] MEDS ORDERED: NA CHLORIDE 0.9% 1,000 ML ONE (20:36)
[2019-12-08 20:41] LABS: Absolute Lymphocytes (CBC) 1.8 K/uL (0.7-4.9); Basophils % 0.4 % (0-1.3); Hematocrit 39.8 % (36.0-45.0); Lymphocytes % 15.5 % (15.3-44.8); MPV 9.5 fL (7.6-11.3); RBC Red Blood Cell Count 4.69 M/uL (3.86-4.86)
[2019-12-08 21:05] LABS: Potassium 3.5 mmol/L (3.5-5.1)
[2019-12-08] MEDS ORDERED: VANCOMYCIN 1 GM/VIAL ONE (21:41)
[2019-12-08] MEDS ORDERED: NA CHLORIDE 0.9% 250 ML ONE (21:41)
[2019-12-08] MEDS ORDERED: CLINDAMYCIN 900MG/D5W 900 MG/50 ML IVPB IV ONE (21:49)
[2019-12-08] MEDS ORDERED: CEFTRIAXONE/SWI 1gm 1 GM/10 ML SYR ONE (22:39)
--- NOTE | 2019-12-08 22:49 | ER ---
Nurse's Notes [facility] Name: Jerilyn Johnson Age: 54 yrs Sex: Female : 1965 Arrival Date: 12/08/2019 Time: 19:26 Bed 5 Private MD: Diagnosis: Cellulitis right upper extremity Presentation: 12/07 19:37 Chief complaint: Patient states: RUE cellulitis redness and swelling for 1 day. Took 2 ll1 antibiotics today clindamycin and cefdnir. Coronavirus screen: Proceed with normal triage. Patient denies a cough. Patient denies shortness of breath or difficulty breathing. Patient denies measured and/or subjective temperature greater than 100.4F prior to today's visit. Patient denies travel on a cruise ship or to a country the [facility] currently lists as an affected area. Patient denies contact with known and/or suspected case of COVID-19. Ebola Screen: Patient denies travel to an Ebola-affected area in the 21 days before illness onset. Initial Sepsis Screen: Does the patient meet any 2 criteria? HR > 90 bpm. Does the patient have a suspected source of infection? Yes: Skin breakdown/wound. Risk Assessment: Do you want to hurt yourself or someone else? Patient reports no desire to harm self or others. Onset of symptoms was December 08, 2019. 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 - Social history:: Smoking status: Patient denies any tobacco usage or history of. Patient/guardian denies using alcohol, street drugs, tobacco products. Screenin:57 Abuse screen: Denies threats or abuse. Denies injuries from another. Nutritional mg2 screening: No deficits noted. Tuberculosis screening: No symptoms or risk factors identified. Fall Risk None identified. Assessment: 19:56 General: Appears in no apparent distress. comfortable, Behavior is calm, cooperative. mg2 Pain: Complains of pain in right arm. Neuro: Level of Consciousness is awake, alert, obeys commands, Oriented to person, place, time, situation. Cardiovascular: Capillary refill < 3 seconds Patient's skin is warm and dry. Respiratory: Airway is patent Respiratory effort is even, unlabored, Respiratory pattern is regular, symmetrical. GI: No signs and/or symptoms were reported involving the gastrointestinal system. : No signs and/or symptoms were reported regarding the genitourinary system. EENT: No signs and/or symptoms were reported regarding the EENT system. Derm: Skin is intact, is healthy with good turgor, Skin is red, mild redness in the right arm. Musculoskeletal: Capillary refill < 3 seconds, Swelling present in right arm. 21:48 Reassessment: Patient appears in no apparent distress at this time. Patient and/or mg2 family updated on plan of care and expected duration. Pain level reassessed. Patient is alert, oriented x 3, equal unlabored respirations, skin warm/dry/pink. 22:32 Reassessment: right arm become more swollen, provider assessed the patient and advised [facility] for admission, patient agreed. Vital Signs: 19:37 BP 159 / 95; Pulse 129; Resp 18; Temp 99.2; Pulse Ox 100% ; Weight 70.31 kg; Height 5 ll1 ft. 3 in. (160.02 cm); Pain 7/10; 21:48 BP 150 / 82; Pulse 91; Resp 18; Pulse Ox 100% on R/A; mg2 22:30 BP 137 / 81; Pulse 85; Resp 16; Pulse Ox 99% ; rr5 22:45 Temp 98.2(O); mg2 23:48 BP 138 / 75; Pulse 86; Resp 18; Pulse Ox 100% on R/A; mg2 0606 00:27 BP 134 / 68; Pulse 94; Resp 18; Temp 98.2; Pulse Ox 100% on R/A; mg2 12/07 19:37 Body Mass Index 27.46 (70.31 kg, 160.02 cm) ll1 ED Course: 12/07 19:26 Patient arrived in ED. cl3 19:39 Triage completed. ll1 19:40 Arm band placed on. ll1 19:44 Surya Costa, RN is Primary Nurse. mg2 19:50 Timmy Munguia MD is Attending Physician. pkl 19:57 Patient has correct armband on for positive identification. mg2 19:57 No provider procedures requiring assistance completed. mg2 20:25 Inserted saline lock: 20 gauge in left antecubital area, using aseptic technique. Blood mg2 collected. 21:48 Door closed. Ice pack to injury. mg2 22:47 US Extremity Venous Unilateral Ltd In Process Unspecified. EDMS 22:47 Zheng Murillo MD is Hospitalizing Provider. pkl 12/08 00:26 Patient admitted, IV remains in place. mg2 Administered Medications: 12/07 20:28 Drug: NS 0.9% 1000 ml Route: IV; Rate: 125 ml/hr; Site: left antecubital; mg2 21:26 CANCELLED (Duplicate Order): vancoMYCIN 1 grams IVPB once over 2 hrs pkl 21:39 CANCELLED (Patient Refused; she has a reaction from vancomycin prior): vancoMYCIN 1 mg2 grams IVPB once over 2 hrs 21:48 Drug: Clindamycin 900 mg Route: IVPB; Infused Over: 30 mins; Site: left antecubital; mg2 22:40 Drug: Rocephin - (cefTRIAXone) 1 grams Route: IVPB; Infused Over: 30 mins; Site: left mg2 antecubital; 22:45 Drug: Motrin 600 mg Route: PO; mg2 Outcome: 22:48 Decision to Hospitalize by Provider. pkl 12/08 00:27 Admitted to Med/surg accompanied by tech, via wheelchair, room 207, with chart, Report mg2 called to ARIS Patterson Condition: stable Instructed on the need for admit, Demonstrated understanding of instructions. 00:44 Patient left the ED. mg2 Signatures: Dispatcher [employer] EDMS Timmy Munguia MD MD pkl Surya Costa RN RN mg2 Francis Dailey RN RN rr5 Dheeraj Meléndez cl3 Tala Meléndez RN RN ll1
--- NOTE | 2019-12-08 22:49 | EDPHYS ---
Physician Documentation [facility] Name: Jerilyn Johnson Age: 54 yrs Sex: Female : 1965 Arrival Date: 12/08/2019 Time: 19:26 Bed 5 Private MD: ED Physician Timmy Munguia HPI: 12/07 20:04 This 54 yrs old Female presents to ER via Ambulatory with complaints of Arm pkl Pain, Cellulitus. 20:04 The patient or guardian complains of pain, that is acute, swelling, erythema. The pkl complaints affect the right upper extremity. Onset: The symptoms/episode began/occurred today. H/O right breast cancer. Has recurrent episodes of cellulitis right upper extremity. 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 - Social history:: Smoking status: Patient denies any tobacco usage or history of. Patient/guardian denies using alcohol, street drugs, tobacco products. ROS: 20:04 Eyes: Negative for injury, pain, redness, and discharge, ENT: Negative for injury, pkl pain, and discharge, Neck: Negative for injury, pain, and swelling. 20:04 Cardiovascular: Positive for palpitations. 20:04 Respiratory: Negative for cough, shortness of breath. 20:04 Abdomen/GI: Negative for abdominal pain, nausea, vomiting, and diarrhea. 20:04 Back: Negative for acute changes. 20:04 : Negative for urinary symptoms. 20:04 MS/extremity: Positive for erythema, pain, swelling, warmth, of the right upper extremity. 20:04 Neuro: Negative for altered mental status. Exam: 20:04 Head/Face: Normocephalic, atraumatic. Eyes: Pupils equal round and reactive to light, pkl extra-ocular motions intact. Lids and lashes normal. Conjunctiva and sclera are non-icteric and not injected. Cornea within normal limits. Periorbital areas with no swelling, redness, or edema. ENT: Nares patent. No nasal discharge, no septal abnormalities noted. Tympanic membranes are normal and external auditory canals are clear. Oropharynx with no redness, swelling, or masses, exudates, or evidence of obstruction, uvula midline. Mucous membranes moist. Neck: Trachea midline, no thyromegaly or masses palpated, and no cervical lymphadenopathy. Supple, full range of motion without nuchal rigidity, or vertebral point tenderness. No Meningismus. Chest/axilla: Normal chest wall appearance and motion. Nontender with no deformity. No lesions are appreciated. 20:04 Cardiovascular: Rate: tachycardic, actual rate is 129 bpm, Rhythm: regular. 20:04 Respiratory: the patient does not display signs of respiratory distress, Respirations: normal, Breath sounds: are clear throughout. 20:04 Abdomen/GI: Exam negative for acute changes. 20:04 Back: Exam negative for acute changes. 20:04 : Exam negative for acute changes. 20:04 Musculoskeletal/extremity: Extremities: grossly normal except: noted in the right upper extremity: erythema, pain, swelling. 20:04 Neuro: Exam negative for acute changes, Orientation: is normal, Mentation: is normal, Cranial nerves: grossly normal, Motor: is normal. Vital Signs: 19:37 BP 159 / 95; Pulse 129; Resp 18; Temp 99.2; Pulse Ox 100% ; Weight 70.31 kg; Height 5 ll1 ft. 3 in. (160.02 cm); Pain 7/10; 21:48 BP 150 / 82; Pulse 91; Resp 18; Pulse Ox 100% on R/A; mg2 22:30 BP 137 / 81; Pulse 85; Resp 16; Pulse Ox 99% ; rr5 22:45 Temp 98.2(O); mg2 23:48 BP 138 / 75; Pulse 86; Resp 18; Pulse Ox 100% on R/A; mg2 06/06 00:27 BP 134 / 68; Pulse 94; Resp 18; Temp 98.2; Pulse Ox 100% on R/A; mg2 12/07 19:37 Body Mass Index 27.46 (70.31 kg, 160.02 cm) ll1 MDM: 12/07 19:50 Patient medically screened. pkl 22:46 Data reviewed: vital signs, nurses notes, lab test result(s), radiologic studies, pkl ultrasound. ED course: Talked to Dr. Murillo, it. 12/07 20:03 Order name: CBC with Diff; Complete Time: 21:20 pkl 12/07 20:03 Order name: Chem 7; Complete Time: 21:20 pkl 12/07 20:03 Order name: Sed Rate; Complete Time: 21:20 pkl 12/07 20:03 Order name: Blood Culture Adult (2) pkl 12/07 20:03 Order name: D-Dimer; Complete Time: 21:20 pkl 12/07 20:03 Order name: Lactate; Complete Time: 21:20 pkl 12/07 20:03 Order name: US Extremity Venous Unilateral Ltd pkl Administered Medications: 20:28 Drug: NS 0.9% 1000 ml Route: IV; Rate: 125 ml/hr; Site: left antecubital; mg2 21:26 CANCELLED (Duplicate Order): vancoMYCIN 1 grams IVPB once over 2 hrs pkl 21:39 CANCELLED (Patient Refused; she has a reaction from vancomycin prior): vancoMYCIN 1 mg2 grams IVPB once over 2 hrs 21:48 Drug: Clindamycin 900 mg Route: IVPB; Infused Over: 30 mins; Site: left antecubital; mg2 22:40 Drug: Rocephin - (cefTRIAXone) 1 grams Route: IVPB; Infused Over: 30 mins; Site: left mg2 antecubital; 22:45 Drug: Motrin 600 mg Route: PO; mg2 Disposition: 12/08/19 22:48 Hospitalization ordered by Zheng Murillo for Inpatient Admission. Preliminary diagnosis is Cellulitis right upper extremity. - Bed requested for Telemetry/MedSurg (Inpatient). - Status is Inpatient Admission. mg2 - Condition is Stable. - Problem is new. - Symptoms are unchanged. Signatures: Dispatcher [employer] EDMS Michaela Willis RN RN Timmy Munguia MD MD pkl Surya Costa RN RN mg2 Tala Meléndez RN RN ll1 Corrections: (The following items were deleted from the chart) 21:26 21:23 vancoMYCIN 1 grams IVPB once over 2 hrs ordered. pkl pkl 21:39 21:23 vancoMYCIN 1 grams IVPB once over 2 hrs ordered. pkl mg2 21:39 21:38 vancoMYCIN 1 grams IVPB once over 2 hrs ordered. mg2 mg2 12/08 00:10 12/07 22:48 Hospitalization Ordered by Zheng Murillo MD for Inpatient Admission. mw Preliminary diagnosis is Cellulitis right upper extremity. Bed requested for Telemetry/MedSurg (Inpatient). Status is Inpatient Admission. Condition is Stable. Problem is new. Symptoms are unchanged. pkl 12/08 00:44 00:12/08/2019 22:48 Hospitalization Ordered by Zheng Murillo MD for Inpatient mg2 Admission. Preliminary diagnosis is Cellulitis right upper extremity. Bed requested for Telemetry/MedSurg (Inpatient). Status is Inpatient Admission. Condition is Stable. Problem is new. Symptoms are unchanged. mw
[2019-12-08] MEDS ORDERED: IBUPROFEN 200 MG TAB PO ONE (22:51)
[2019-12-09] MEDS: NA CHLORIDE 0.9% 1,000 ML IV SCH ×3 (01:01→19:45)
[2019-12-09 02:07] VITALS: BMI 27.4
[2019-12-09] MEDS ORDERED: NA CHLORIDE 0.9% 50 ML ONE (03:42)
[2019-12-09] MEDS ORDERED: CLINDAMYCIN IV 150 MG/ML (6 mL) VIAL ONE (03:45)
[2019-12-09] MEDS: CLINDAMYCIN PHOSPHATE 900 MG in NA CHLORIDE 0.9% 50 ML IV SCH ×4 (05:08→23:56)
[2019-12-09 06:02] LABS: Absolute Lymphocytes (CBC) 1.9 K/uL (0.7-4.9); Basophils % 0.5 % (0-1.3); Hematocrit 35.9 % (36.0-45.0); Lymphocytes % 28.8 % (15.3-44.8); MPV 9.4 fL (7.6-11.3); RBC Red Blood Cell Count 4.23 M/uL (3.86-4.86)
[2019-12-09 06:48] LABS: Potassium 4.1 mmol/L (3.5-5.1)
[2019-12-09] MEDS: CEFTRIAXONE/SWI 1gm 1 GM/10 ML SYR IV SCH ×2 (09:34→21:16)
[2019-12-09] MEDS ORDERED: ACETAMINOPHEN 500 MG TAB PO PRN (11:44)
[2019-12-09] MEDS ORDERED: ALPRAZOLAM 0.25 MG TABLET PO PRN (11:49)
[2019-12-09] MEDS ORDERED: ACETAMINOPHEN 500 MG TAB ONE (11:57)
[2019-12-09] MEDS: IBUPROFEN 400 MG TAB PO PRN (12:20)
--- NOTE | 2019-12-09 13:07 | PN ---
Date of Progress Note: 12/09/2019 Patient seems much better both clinically and lab argueta is blood count now within normal range. She s till has some erythema on the arm; however, it has improved somewhat, marked tenderness still present . We will continue with the present regimen and possibly discharge tomorrow. HR/MODL Voice ID: [id number] Report ID: [id number]
--- NOTE | 2019-12-09 13:13 | HP ---
Date of Admission: 12/08/2019 Chief Complaint: Painful arm. History Of Present Illness: Patient states she was at work when she had a sudden onset of pain and r edness and chill in her arm, which is similar to multiple prior incidences. However, this is the monica gest time she has gone without necessitating hospitalization in quite some time. Past History: As above. The patient has a long history of cellulitis, lymphangitis, secondary to br east cancer surgery, axillary dissection a number of years ago. In fact, patient has been back to [facility] for discussion of a lymphatic procedure and has now come for evaluation. Other than this, she has been in good general health. Family History: Noncontributory. Social History: Noncontributory. Physical Examination: General: Patient is a well-built, middle-aged female in no acute distress. Vital Signs: Stable. Head and Neck: Normocephalic. Pupils equal and reactive to light and accommodation. Fundi negative . Trachea midline. Thyroid not palpable. ENT: Negative. Chest: Clear to P and A. Cardiovascular: PMI at midclavicular line. Heart sounds normal. Peripheral pulses present and equa l bilaterally. Abdomen: No organomegaly. Bowel sounds present. Extremities: All extremities normal except for the right upper, which shows a marked amount of eryth jina both proximal and distal to the elbow joint, tenderness in the same area and decreased motion at the joint. Rectal: Deferred. Pelvic: Deferred. Impression: Cellulitis and lymphangitis of the right arm. Plan: Patient will be admitted, placed on her usual antibiotic combination of Rocephin and clindamyc in, which she gets a good response to. HR/MODL Voice ID: [id number]
--- NOTE | 2019-12-09 20:34 | RAD REPORT ---
EXAM DESCRIPTION: US - Extremity Venous Uni Ltd - 12/08/2019 10:46 pm CLINICAL HISTORY: Swelling; Pain TECHNIQUE: Real-time Duplex ultrasound of the right upper extremity veins with 2-D denny scale, color Doppler flow, and spectral waveform analysis. COMPARISON: None available for comparison. FINDINGS: Right deep veins: The internal jugular, subclavian, axillary, brachial, radial and ulnar v eins are patent without thrombus. Normal compressibility, augmentation response, and Doppler waveform s. Right superficial veins: The visualized basilic and cephalic veins are patent without thrombus. Soft tissues: Unremarkable. IMPRESSION: No evidence for deep venous thrombosis within the right upper extremity. Electronically signed by: Ziyad Byrd MD 12/08/2019 11:08 PM CDT Due to temporary technical issues with the PACS/Fluency reporting system, reports are being signed by the in house radiologist without review as a courtesy to ensure prompt reporting. The interpreting r adiologist is fully responsible for the content of the report.
[2019-12-09] MEDS ORDERED: ATORVASTATIN 20 MG TAB PO SCH (21:00)
[2019-12-09] MEDS ORDERED: PANTOPRAZOLE 40MG TABLET PO SCH (21:00)
[2019-12-09] MEDS ORDERED: ESCITALOPRAM 20 MG TAB PO SCH (21:00)
[2019-12-10] MEDS: CLINDAMYCIN PHOSPHATE 900 MG in NA CHLORIDE 0.9% 50 ML IV SCH ×2 (05:10→11:43)
[2019-12-10 08:30] VITALS: O2SAT 96
[2019-12-10] MEDS: CEFTRIAXONE/SWI 1gm 1 GM/10 ML SYR IV SCH (08:59)
[2019-12-10] MEDS ORDERED: HOME MED 1 EA UNK (Pitavastatin Calcium [Livalo] 4 MG) PO SCH (09:00)
[2019-12-10 12:37] VITALS: BP 126/71; TEMP 97.2
[2019-12-10] MEDS: IBUPROFEN 400 MG TAB PO PRN (13:50)
--- NOTE | 2019-12-10 15:22 | PN ---
Date of Progress Note: 12/10/2019 Patient continues to improve. She still has some tenderness around the elbow joint, is no longer domenica thematous. She feels it is safe to send her home on oral medication, come by the office in the [facility] for a Rocephin shot. At that time, determine whether she needs any parenteral antibiotics for a c ouple days. HR/MODL Voice ID: [id number] Report ID: [id number]
== END 2019-12-10 15:33 | disposition home or self-care (01) | DRG 603 ==
LOC: ER 19:23 → ERHOLD 23:05 → 2ND 12-09 00:27
PROVIDERS: ADMIT Family Medicine; ATTEND Family Medicine
DX: L03.113 Cellulitis of right upper limb (principal); K21.9 Gastro-esophageal reflux disease without esophagitis; Z85.3 Personal history of malignant neoplasm of breast; Z88.5 Allergy status to narcotic agent; Z88.0 Allergy status to penicillin; Z88.1 Allergy status to other antibiotic agents; Z79.01 Long term (current) use of anticoagulants; Z20.828 Contact with and (suspected) exposure to other viral communicable diseases; Z79.899 Other long term (current) drug therapy
CPT/HCPCS: 36415; 80048; 83605; 85025; 85379; 85652; 87040; 93971; 96374; 96375; 99285; J0696; J7030; S0077; U0002

== ENCOUNTER 2020-01-08 13:40 | Emergency (ER) | payer BC ==
--- OUTSIDE RECORDS SUMMARY | 2020-01-08 15:59 | XMS REPORT | Continuity of Care Document ---
:1965 Author Organization [facility] t Address [address] [place] [address] Dr. Stallworth [address] [place] [id number] Care Team Providers Name Role Phone Unavailable Unavailable Unavailable Problems This patient has no known problems. Allergies, Adverse Reactions, Alerts This patient has no known allergies or adverse reactions. Medications This patient has no known medications. Procedures This patient has no known procedures. Results This patient has no known results.
--- NOTE | 2020-01-08 16:50 | ER ---
Nurse's Notes [facility] Name: Jerilyn Johnson Age: 54 yrs Sex: Female : 1965 Arrival Date: 01/08/2020 Time: 13:42 Bed 8 Private MD: Diagnosis: Viral infection, unspecified Presentation: 01/07 13:52 Chief complaint: Patient states: cough, sore throat, body aches, decreased appetite sv started Wednesday. 3 days ago started with loss of taste, diarrhea, SOB with exertion, chills. Was tested about a month ago and was negative. States that her son was positive and she has been around his kids. Coronavirus screen: Surgical mask placed on patient. Patient moved to private room, placed in contact and droplet isolation with eye protection until further assessment. Patient reports a cough. Patient reports shortness of breath or difficulty breathing. Patient reports a measured and/or subjective temperature greater than 100.4F. Patient denies travel on a cruise ship or to a country the [facility] currently lists as an affected area. Patient denies contact with known and/or suspected case of COVID-19. Ebola Screen: No symptoms or risks identified at this time. Onset of symptoms was January 02, 2020. 13:52 Method Of Arrival: Ambulatory sv 13:52 Acuity: IRVIN 3 sv 13:55 Initial Sepsis Screen: Does the patient meet any 2 criteria? No. Patient's initial sv sepsis screen is negative. Does the patient have a suspected source of infection? No. Patient's initial sepsis screen is negative. Risk Assessment: Do you want to hurt yourself or someone else? Patient reports no desire to harm self or others. 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 - Social history:: Smoking status: unknown. Screenin:13 Abuse screen: Denies threats or abuse. Denies injuries from another. Nutritional jl7 screening: No deficits noted. Tuberculosis screening: No symptoms or risk factors identified. Fall Risk None identified. Assessment: 16:30 General: Appears in no apparent distress. uncomfortable, Behavior is cooperative, jl7 anxious. Pain: Complains of pain in sore throat. Neuro: Level of Consciousness is awake, alert, obeys commands, Oriented to person, place, time, situation. Cardiovascular: Patient's skin is warm and dry. Respiratory: Airway is patent Respiratory effort is even, unlabored, Respiratory pattern is regular, symmetrical. EENT: Throat is reddened. Derm: Skin is pink, warm \T\ dry. Vital Signs: 13:55 BP 126 / 105; Pulse 86; Resp 18; Temp 98.4; Pulse Ox 97% ; Weight 78.02 kg; Height 5 sv ft. 4 in. (162.56 cm); 13:55 Body Mass Index 29.52 (78.02 kg, 162.56 cm) sv ED Course: 13:42 Patient arrived in ED. as 13:54 Triage completed. sv 13:54 Arm band placed on. sv 15:36 John Paul Mckeon PA is PHCP. jr8 15:36 Frankie Chiu MD is Attending Physician. jr8 16:30 COVID-19 swab sent to lab. jl7 17:13 Jackelyn Alford RN is Primary Nurse. jl7 17:13 Patient has correct armband on for positive identification. Bed in low position. Call jl7 light in reach. Side rails up X2. 17:18 No provider procedures requiring assistance completed. Patient did not have IV access jl7 during this emergency room visit. Administered Medications: No medications were administered Outcome: 16:49 Discharge ordered by . jr8 17:15 Discharged to home ambulatory. jl7 17:15 Condition: stable 17:15 Discharge instructions given to patient, Instructed on discharge instructions, follow up and referral plans. medication usage, Demonstrated understanding of instructions, follow-up care, medications, Prescriptions given X 2. 17:18 Patient left the ED. jl7 Signatures: Esmer Salcedo, RN RN Manisha Jovel Josh, PA PA jr8 Jackelyn Alford RN RN jl7 Corrections: (The following items were deleted from the chart) 13:55 13:52 Chief complaint: Patient states: cough, sore throat, body aches, decreased sv appetite started Wednesday. 3 days ago started with loss of taste, diarrhea, SOB with exertion, chills. sv 13:57 13:52 Acuity: IRVIN 4 sv sv
--- NOTE | 2020-01-08 16:51 | EDPHYS ---
Physician Documentation [facility] Name: Jerilyn Johnson Age: 54 yrs Sex: Female : 1965 Arrival Date: 01/08/2020 Time: 13:42 Bed 8 Private MD: ED Physician Frankie Chiu HPI: 01/07 16:37 This 54 yrs old Female presents to ER via Ambulatory with complaints of jr8 Cough, Sore Throat, Ear Pain, Decreased Appetite. 16:37 The patient or guardian reports cough, that is intermittent, described as mild, with no jr8 sputum, flu symptoms, arthralgias, myalgias, no appetite. Onset: The symptoms/episode began/occurred gradually, 1 week(s) ago. Severity of symptoms: At their worst the symptoms were moderate, in the emergency department the symptoms are unchanged. Modifying factors: The symptoms are alleviated by nothing, the symptoms are aggravated by nothing. Associated signs and symptoms: Pertinent positives: diarrhea, Loss of taste and smell. The patient has not experienced similar symptoms in the past. The patient has not recently seen a physician. 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 - Social history:: Smoking status: unknown. ROS: 16:37 Eyes: Negative for injury, pain, redness, and discharge, ENT: Negative for injury, jr8 pain, and discharge, Neck: Negative for injury, pain, and swelling, Cardiovascular: Negative for chest pain, palpitations, and edema, Back: Negative for injury and pain, MS/Extremity: Negative for injury and deformity, Skin: Negative for injury, rash, and discoloration, Neuro: Negative for headache, weakness, numbness, tingling, and seizure. 16:37 Constitutional: Positive for body aches, chills, fatigue, malaise, poor PO intake. 16:37 Respiratory: Positive for cough, Negative for dyspnea on exertion, shortness of breath, sputum production, wheezing. 16:37 Abdomen/GI: Positive for nausea, diarrhea, Negative for abdominal pain, vomiting. Exam: 16:37 Eyes: Pupils equal round and reactive to light, extra-ocular motions intact. Lids and jr8 lashes normal. Conjunctiva and sclera are non-icteric and not injected. Cornea within normal limits. Periorbital areas with no swelling, redness, or edema. ENT: Nares patent. No nasal discharge, no septal abnormalities noted. Tympanic membranes are normal and external auditory canals are clear. Oropharynx with no redness, swelling, or masses, exudates, or evidence of obstruction, uvula midline. Mucous membranes moist. Neck: Trachea midline, no thyromegaly or masses palpated, and no cervical lymphadenopathy. Supple, full range of motion without nuchal rigidity, or vertebral point tenderness. No Meningismus. Cardiovascular: Regular rate and rhythm with a normal S1 and S2. No gallops, murmurs, or rubs. Normal PMI, no JVD. No pulse deficits. Respiratory: Lungs have equal breath sounds bilaterally, clear to auscultation and percussion. No rales, rhonchi or wheezes noted. No increased work of breathing, no retractions or nasal flaring. Abdomen/GI: Soft, non-tender, with normal bowel sounds. No distension or tympany. No guarding or rebound. No evidence of tenderness throughout. Back: No spinal tenderness. No costovertebral tenderness. Full range of motion. Skin: Warm, dry with normal turgor. Normal color with no rashes, no lesions, and no evidence of cellulitis. MS/ Extremity: Pulses equal, no cyanosis. Neurovascular intact. Full, normal range of motion. Neuro: Awake and alert, GCS 15, oriented to person, place, time, and situation. Cranial nerves II-XII grossly intact. Motor strength 5/5 in all extremities. Sensory grossly intact. Cerebellar exam normal. Normal gait. Vital Signs: 13:55 BP 126 / 105; Pulse 86; Resp 18; Temp 98.4; Pulse Ox 97% ; Weight 78.02 kg; Height 5 sv ft. 4 in. (162.56 cm); 13:55 Body Mass Index 29.52 (78.02 kg, 162.56 cm) sv [facility]: 15:36 Patient medically screened. jr8 16:37 Data reviewed: vital signs, nurses notes, lab test result(s), and as a result, I will jr8 discharge patient. Data interpreted: Pulse oximetry: on room air is 97 %. Interpretation: normal. Counseling: I had a detailed discussion with the patient and/or guardian regarding: the historical points, exam findings, and any diagnostic results supporting the discharge/admit diagnosis, the need for outpatient follow up, a family practitioner, to return to the emergency department if symptoms worsen or persist or if there are any questions or concerns that arise at home. Administered Medications: No medications were administered Disposition: 20:57 Co-signature as Attending Physician, Frankie Chiu MD I agree with the assessment and tab plan of care. Disposition: 01/08/20 16:49 Discharged to Home. Impression: Viral infection, unspecified. - Condition is Stable. - Discharge Instructions: Viral Respiratory Infection, COVID-19. - Prescriptions for prednisone 10 mg Oral tablet - take 1 tablet by ORAL route 2 times per day for 14 days; 28 tablet. Zofran 4 mg Oral Tablet - take 1 tablet by ORAL route every 12 hours As needed; 20 tablet. - Medication Reconciliation Form, Thank You Letter, Antibiotic Education, Prescription Opioid Use form. - Follow up: Private Physician; When: As needed; Reason: Recheck today's complaints, Continuance of care, Re-evaluation by your physician. - Problem is new. - Symptoms are unchanged. Signatures: Dispatcher [employer] Esmer Arauz, RN Frankie العراقي MD MD cha Roszak, Josh, PA PA jr8 Jackelyn Alford RN RN jl7 Corrections: (The following items were deleted from the chart) 17:18 16:49 01/08/2020 16:49 Discharged to Home. Impression: Viral infection, unspecified. jl7 Condition is Stable. Forms are Medication Reconciliation Form, Thank You Letter, Antibiotic Education, Prescription Opioid Use. Follow up: Private Physician; When: As needed; Reason: Recheck today's complaints, Continuance of care, Re-evaluation by your physician. Problem is new. Symptoms are unchanged. jr8
[2020-01-08 17:32] VITALS: BP 126/105; TEMP 98.4; O2SAT 97
== END 2020-01-08 17:18 | disposition home or self-care (01) ==
LOC: ER 13:40
DX: B34.9 Viral infection, unspecified (principal); Z88.0 Allergy status to penicillin; Z88.2 Allergy status to sulfonamides; Z88.5 Allergy status to narcotic agent; Z88.8 Allergy status to other drugs, medicaments and biological substances; Z85.3 Personal history of malignant neoplasm of breast
CPT/HCPCS: 99282

== ENCOUNTER 2020-01-09 01:43 | Inpatient (IN) | payer BC, OTHER ==
--- OUTSIDE RECORDS SUMMARY | 2020-01-09 01:44 | XMS REPORT | Continuity of Care Document ---
:1965 Author Organization [facility] t Address [address] [place] [address] Dr. Stallworth [address] [place] [id number] Care Team Providers Name Role Phone Unavailable Unavailable Unavailable Problems This patient has no known problems. Allergies, Adverse Reactions, Alerts This patient has no known allergies or adverse reactions. Medications This patient has no known medications. Procedures This patient has no known procedures. Results This patient has no known results.
[2020-01-09] MEDS ORDERED: NA CHLORIDE 0.9% 500 ML ONE (02:26)
[2020-01-09] MEDS ORDERED: NA CHLORIDE 0.9% 2,000 ML ONE (02:26)
[2020-01-09] MEDS ORDERED: ACETAMINOPHEN 500 MG TAB ONE ×2 (02:30→12:42)
[2020-01-09 03:12] LABS: Absolute Lymphocytes (CBC) 1.1 K/uL (0.7-4.9); Basophils % 0.3 % (0-1.3); Hematocrit 40.5 % (36.0-45.0); Lymphocytes % 13.9 % (15.3-44.8); MPV 9.6 fL (7.6-11.3); RBC Red Blood Cell Count 4.76 M/uL (3.86-4.86)
[2020-01-09 03:13] LABS: Protime INR 1.05
[2020-01-09] MEDS ORDERED: CLINDAMYCIN 900MG/D5W 900 MG/50 ML IVPB IV ONE (03:30)
[2020-01-09] MEDS ORDERED: CEFTRIAXONE/SWI 1gm 1 GM/10 ML SYR ONE ×2 (03:31→18:36)
[2020-01-09 03:36] LABS: ALT/SGPT 50 U/L (12-78); AST/SGOT 55 U/L (15-37); Alkaline Phosphatase 115 U/L (45-117); Amylase 40 U/L (25-115); BUN Blood Urea Nitrogen 19 mg/dL (7-18); Bicarbonate 23 mmol/L (21-32); Bilirubin Direct 0.1 mg/dL (0-0.2); Bilirubin Total 0.5 mg/dL (0.2-1.0); CKMB Creatine Kinase MB < 1.0 ng/mL (0.3-3.6); Creatine Phosphokinase 78 U/L (26-192); Glucose Level 117 mg/dL (74-106); Lipase 164 U/L (73-393); Sodium Level 137 mmol/L (136-145); Troponin (Emerg Dept Use Only) < 0.02 ng/mL (0.0-0.045)
[2020-01-09 03:53] LABS: Urine Mucus 2+ /HPF (NONE SEEN)
[2020-01-09 03:55] LABS: Urine Bacteria <20 /HPF (<20); Urine Culture Reflex Order NOT NEEDED; Urine RBC <5 /HPF (NONE SEEN)
--- NOTE | 2020-01-09 04:26 | ER ---
Nurse's Notes [facility] Name: Jerilyn Johnson Age: 54 yrs Sex: Female : 1965 Arrival Date: 01/09/2020 Time: 01:46 Bed 8 Private MD: Diagnosis: Fever. Pain right upper extremity. Recurrent cellulitis Presentation: 01/08 02:12 Chief complaint: Patient states: i have right arm cellulitis started today. i was here mg2 today and was tested for COVID because i had loss of smell and shortness of breath. Coronavirus screen: Surgical mask placed on patient. Patient moved to private room, placed in contact and droplet isolation with eye protection until further assessment. Patient reports shortness of breath or difficulty breathing. Patient reports a measured and/or subjective temperature greater than 100.4F. Patient denies travel on a cruise ship or to a country the [facility] currently lists as an affected area. Patient denies contact with known and/or suspected case of COVID-19. Prior COVID test collected on: 2019January 07 results are pending. Ebola Screen: No symptoms or risks identified at this time. Initial Sepsis Screen: Does the patient meet any 2 criteria? Temp <36.0*C (96.8*F)) or > 38.3*C (100.9*F). HR > 90 bpm. Yes Does the patient have a suspected source of infection? Yes: Skin breakdown/wound. Risk Assessment: Do you want to hurt yourself or someone else? Patient reports no desire to harm self or others. Onset of symptoms was January 09, 2020. 02:12 Method Of Arrival: Ambulatory mg2 02:12 Acuity: IRVIN 3 mg2 Triage Assessment: 02:17 General: Appears in no apparent distress. comfortable, Behavior is calm, cooperative. mg2 Pain: Complains of pain in right arm. EENT: No signs and/or symptoms were reported regarding the EENT system. Neuro: Level of Consciousness is awake, alert, obeys commands, Oriented to person, place, time, situation. Cardiovascular: Capillary refill < 3 seconds Patient's skin is warm and dry. Respiratory: Airway is patent Respiratory effort is even, unlabored, Respiratory pattern is regular, symmetrical. GI: No signs and/or symptoms were reported involving the gastrointestinal system. : No signs and/or symptoms were reported regarding the genitourinary system. Derm: redness and mild swelling in the right arm. Musculoskeletal: Circulation, motion, and sensation intact. Capillary refill < 3 seconds. 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 - Social history:: Smoking status: Patient denies any tobacco usage or history of. Patient/guardian denies using alcohol, street drugs, IV drugs. Screenin:19 Abuse screen: Denies threats or abuse. Denies injuries from another. Nutritional mg2 screening: No deficits noted. Tuberculosis screening: No symptoms or risk factors identified. Fall Risk None identified. Assessment: 02:11 Reassessment: code sepsis 700 called. mg2 02:18 General: see triage assessment. mg2 02:20 General: Appears in no apparent distress. uncomfortable, Behavior is calm, cooperative, jd3 appropriate for age. Pain: Complains of pain in head Quality of pain is described as aching. 02:20 Neuro: Level of Consciousness is awake, alert, obeys commands, Oriented to person, jd3 place, time, situation. Cardiovascular: Denies chest pain, Capillary refill < 3 seconds Patient's skin is warm and dry. Rhythm is sinus tachycardia. Respiratory: Reports cough that is persistent Airway is patent Respiratory effort is even, unlabored, Respiratory pattern is regular, symmetrical, Denies shortness of breath. GI: No signs and/or symptoms were reported involving the gastrointestinal system. : No signs and/or symptoms were reported regarding the genitourinary system. EENT: No signs and/or symptoms were reported regarding the EENT system. Derm: Skin is intact, Skin is dry, Skin is normal, Skin temperature is warm redness and swelling noted to right arm. Musculoskeletal: Circulation, motion, and sensation intact. Range of motion: intact in all extremities, Swelling present in right arm. 03:18 Reassessment: Patient appears in no apparent distress at this time. Patient and/or jd3 family updated on plan of care and expected duration. Pain level reassessed. Patient is alert, oriented x 3, equal unlabored respirations, skin warm/dry/pink. Patient states feeling better. 04:28 Reassessment: Patient appears in no apparent distress at this time. Patient and/or jd3 family updated on plan of care and expected duration. Pain level reassessed. Patient is alert, oriented x 3, equal unlabored respirations, skin warm/dry/pink. Patient states feeling better. 05:13 Reassessment: Patient and/or family updated on plan of care and expected duration. Pain jd3 level reassessed. Patient is alert, oriented x 3, equal unlabored respirations, skin warm/dry/pink. charting continued in [facility]. Patient states feeling better. 07:05 Reassessment: REPORT [facility] FROM [facility], CHARTING CONTINUED IN [facility]. hb Vital Signs: 02:12 BP 162 / 97; Pulse 123; Resp 18; Temp 102.4; Pulse Ox 98% on R/A; Weight 78.02 kg; mg2 Height 5 ft. 3 in. (160.02 cm); 03:16 BP 144 / 66; Pulse 97; Resp 18 S; Pulse Ox 99% on R/A; jd3 04:28 BP 144 / 77; Pulse 99; Resp 19 S; Temp 98.8(O); Pulse Ox 99% on R/A; jd3 02:12 Body Mass Index 30.47 (78.02 kg, 160.02 cm) mg2 ED Course: 01:46 Patient arrived in ED. bp1 01:53 Timmy Munguia MD is Attending Physician. pkl 01:55 Surya Costa, ARIS is Primary Nurse. mg2 02:16 Triage completed. mg2 02:17 Arm band placed on. mg2 02:19 Patient has correct armband on for positive identification. monitoring coordinator on. Pulse mg2 ox on. NIBP on. Door closed. Warm blanket given. 02:19 No provider procedures requiring assistance completed. mg2 02:38 Chest Single View XRAY In Process Unspecified. EDMS 02:50 Inserted saline lock: 20 gauge in left antecubital area, using aseptic technique. Blood jd3 collected. 04:23 Zheng Murillo MD is Hospitalizing Provider. pkl 05:13 Patient admitted, IV remains in place. jd3 12:50 Primary Nurse role handed off by Surya Costa RN 12:50 Sangita Spear, RN is Primary Nurse. hb Administered Medications: 02:23 Drug: Tylenol 1000 mg Route: PO; jd3 03:20 Follow up: Response: No adverse reaction jd3 03:15 Drug: NS 0.9% (30 ml/kg) 30 ml/kg Route: IV; Rate: bolus; Site: left antecubital; jd3 04:27 Follow up: Response: No adverse reaction; Rate change 100 ml/hr; IV Intake: 2000ml jd3 05:14 Follow up: Response: No adverse reaction; IV Status: Infusion continued upon admission jd3 03:34 Drug: Rocephin - (cefTRIAXone) 1 grams Route: IVPB; Infused Over: 30 mins; Site: left jd3 antecubital; 03:35 Follow up: Response: No adverse reaction; IV Status: Completed infusion; IV Intake: jd3 10ml ; given as IV push per verbal order 03:34 Drug: Clindamycin 900 mg Route: IVPB; Infused Over: 30 mins; Site: left antecubital; jd3 04:05 Follow up: Response: No adverse reaction; IV Status: Completed infusion; IV Intake: [id number] Intake: 03:35 IV: 10ml; Total: 10ml. jd3 04:05 IV: 50ml; Total: 60ml. jd3 04:27 IV: 2000ml; Total: 2060ml. jd3 Outcome: 04:25 Decision to Hospitalize by Provider. pkl 05:13 Admitted to ER Hold. Please see [facility] for further documentation. jd3 05:13 Condition: stable 05:13 Instructed on the need for admit, Demonstrated understanding of instructions. 07 00:17 Patient left the ED. ea Signatures: Dispatcher [employer] EDNM Timmy Munguia MD MD pkl Sangita Spear, ARIS [facility] Ruthy Robert RN RN ea Davies, Jonathon, RN RN jd3 Surya Costa, RN RN mg2 Jasvir, Jazmyne bp1
--- NOTE | 2020-01-09 04:26 | EDPHYS ---
Physician Documentation [facility] Name: Jerilyn Johnson Age: 54 yrs Sex: Female : 1965 Arrival Date: 01/09/2020 Time: 01:46 Bed 8 Private MD: ED Physician Timmy Munguia HPI: 01/08 02:26 This 54 yrs old Female presents to ER via Ambulatory with complaints of pkl Cellulitis. 02:26 Description: erythematous, warm, right upper extremity. Onset: The symptoms/episode pkl began/occurred just prior to arrival, 2 hour(s) ago. Patient was in the ER earlier and was tested for Covid-19 because she had loss and shortness of breath. 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 - Social history:: Smoking status: Patient denies any tobacco usage or history of. Patient/guardian denies using alcohol, street drugs, IV drugs. ROS: 02:32 Eyes: Negative for injury, pain, redness, and discharge, ENT: Negative for injury, pkl pain, and discharge, Neck: Negative for injury, pain, and swelling, Cardiovascular: Negative for chest pain, palpitations, and edema, Respiratory: Negative for shortness of breath, cough, wheezing, and pleuritic chest pain, Abdomen/GI: Negative for abdominal pain, nausea, vomiting, diarrhea, and constipation, Back: Negative for injury and pain, : Negative for injury, bleeding, discharge, and swelling. 02:32 MS/extremity: Positive for erythema, pain, warmth, of the right upper extremity. 02:32 Neuro: Negative for altered mental status, loss of consciousness. Exam: 02:32 Head/Face: Normocephalic, atraumatic. Eyes: Pupils equal round and reactive to light, pkl extra-ocular motions intact. Lids and lashes normal. Conjunctiva and sclera are non-icteric and not injected. Cornea within normal limits. Periorbital areas with no swelling, redness, or edema. ENT: Nares patent. No nasal discharge, no septal abnormalities noted. Tympanic membranes are normal and external auditory canals are clear. Oropharynx with no redness, swelling, or masses, exudates, or evidence of obstruction, uvula midline. Mucous membranes moist. Neck: Trachea midline, no thyromegaly or masses palpated, and no cervical lymphadenopathy. Supple, full range of motion without nuchal rigidity, or vertebral point tenderness. No Meningismus. Chest/axilla: Normal chest wall appearance and motion. Nontender with no deformity. No lesions are appreciated. Cardiovascular: Regular rate and rhythm with a normal S1 and S2. No gallops, murmurs, or rubs. Normal PMI, no JVD. No pulse deficits. Respiratory: Lungs have equal breath sounds bilaterally, clear to auscultation and percussion. No rales, rhonchi or wheezes noted. No increased work of breathing, no retractions or nasal flaring. Abdomen/GI: Soft, non-tender, with normal bowel sounds. No distension or tympany. No guarding or rebound. No evidence of tenderness throughout. Back: No spinal tenderness. No costovertebral tenderness. Full range of motion. Neuro: Awake and alert, GCS 15, oriented to person, place, time, and situation. Cranial nerves II-XII grossly intact. Motor strength 5/5 in all extremities. Sensory grossly intact. Cerebellar exam normal. Normal gait. 02:32 Musculoskeletal/extremity: Extremities: grossly normal except: noted in the right upper extremity: Vital Signs: 02:12 BP 162 / 97; Pulse 123; Resp 18; Temp 102.4; Pulse Ox 98% on R/A; Weight 78.02 kg; mg2 Height 5 ft. 3 in. (160.02 cm); 03:16 BP 144 / 66; Pulse 97; Resp 18 S; Pulse Ox 99% on R/A; jd3 04:28 BP 144 / 77; Pulse 99; Resp 19 S; Temp 98.8(O); Pulse Ox 99% on R/A; jd3 02:12 Body Mass Index 30.47 (78.02 kg, 160.02 cm) mg2 MDM: 01:53 Patient medically screened. pkl 04:20 Data reviewed: vital signs, nurses notes, lab test result(s), EKG, radiologic studies, pkl plain films. 01/08 02:11 Order name: Amylase, Serum mg2 01/08 02:11 Order name: Basic Metabolic Panel; Complete Time: 04:18 mg2 01/08 02:11 Order name: Blood Culture Adult (2) mg2 01/08 02:11 Order name: CBC with Diff; Complete Time: 04:18 mg2 01/08 02:11 Order name: Ckmb; Complete Time: 04:18 mg2 01/08 02:11 Order name: CPK; Complete Time: 04:18 mg2 01/08 02:11 Order name: Lactate; Complete Time: 04:18 mg2 01/08 02:11 Order name: LFT's; Complete Time: 04:18 mg2 01/08 02:11 Order name: Lipase; Complete Time: 04:18 mg2 01/08 02:11 Order name: Procalcitonin; Complete Time: 04:18 mg2 01/08 02:11 Order name: Protime (+inr); Complete Time: 04:18 mg2 01/08 02:11 Order name: Ptt, Activated; Complete Time: 04:18 mg2 01/08 02:11 Order name: Troponin (emerg Dept Use Only); Complete Time: 04:18 mg2 01/08 02:11 Order name: Urine Microscopic Only; Complete Time: 04:18 mg2 01/08 02:11 Order name: Chest Single View XRAY mg2 01/08 02:11 Order name: Accucheck; Complete Time: 03:15 mg2 01/08 02:13 Order name: Amylase; Complete Time: 04:18 EDMS 01/08 03:17 Order name: Glucose, Ancillary Testing; Complete Time: 03:19 EDMS 01/08 04:04 Order name: Urine Dipstick--Ancillary (enter results); Complete Time: 04:40 ar5 01/08 04:04 Order name: Urine --Ancillary (enter results); Complete Time: 04:40 ar5 01/08 04:40 Order name: Regular EDMS 01/08 04:40 Order name: Basic Metabolic Panel EDMS 01/08 04:40 Order name: Basic Metabolic Panel EDMS 01/08 04:40 Order name: CBC with Automated Diff EDMS 01/08 04:40 Order name: CBC with Automated Diff EDMS 01/08 12:35 Order name: CORONAVIRUS EDMS 01/08 02:11 Order name: Cardiac monitoring; Complete Time: 03:15 mg2 01/08 02:11 Order name: EKG - Nurse/Tech; Complete Time: 03:15 mg2 01/08 02:11 Order name: IV Saline Lock - Large Bore; Complete Time: 03:15 mg2 01/08 02:11 Order name: Labs collected and sent; Complete Time: 03:15 mg2 01/08 02:11 Order name: O2 Per Protocol; Complete Time: 03:15 mg2 01/08 02:11 Order name: O2 Sat Monitoring; Complete Time: 03:15 mg2 01/08 02:11 Order name: Urine Dipstick-Ancillary (obtain specimen); Complete Time: 03:15 mg2 Administered Medications: 02:23 Drug: Tylenol 1000 mg Route: PO; jd3 03:20 Follow up: Response: No adverse reaction jd3 03:15 Drug: NS 0.9% (30 ml/kg) 30 ml/kg Route: IV; Rate: bolus; Site: left antecubital; jd3 04:27 Follow up: Response: No adverse reaction; Rate change 100 ml/hr; IV Intake: 2000ml jd3 05:14 Follow up: Response: No adverse reaction; IV Status: Infusion continued upon admission jd3 03:34 Drug: Rocephin - (cefTRIAXone) 1 grams Route: IVPB; Infused Over: 30 mins; Site: left jd3 antecubital; 03:35 Follow up: Response: No adverse reaction; IV Status: Completed infusion; IV Intake: jd3 10ml ; given as IV push per verbal order 03:34 Drug: Clindamycin 900 mg Route: IVPB; Infused Over: 30 mins; Site: left antecubital; jd3 04:05 Follow up: Response: No adverse reaction; IV Status: Completed infusion; IV Intake: [id number] Disposition: 01/09/20 04:25 Hospitalization ordered by Zheng Murillo for Inpatient Admission. Preliminary diagnosis is Fever. Pain right upper extremity. Recurrent cellulitis . - Bed requested for Intensive Care Unit. - Status is Inpatient Admission. ea - Condition is Stable. - Problem is new. - Symptoms have improved. Signatures: Dispatcher [employer] EDFlora Mas, RN Timmy Escobar MD MD pkl Tanisha Vega RN RN tl1 Ruthy Robert RN Graham Hou ea RN ARIS jSurya Welch RN ARIS mg2 Corrections: (The following items were deleted from the chart) 04:48 04:25 Hospitalization Ordered by Zheng Murillo MD for Inpatient Admission. Preliminary tl1 diagnosis is Fever. Pain right upper extremity. Recurrent cellulitis . Bed requested for Telemetry/MedSurg (Inpatient). Status is Inpatient Admission. Condition is Stable. Problem is new. Symptoms have improved. pk 23:00 04:48 01/09/2020 04:25 Hospitalization Ordered by Zheng Murillo MD for Inpatient kl Admission. Preliminary diagnosis is Fever. Pain right upper extremity. Recurrent cellulitis . Bed requested for [facility] ER HOLD. Status is Inpatient Admission. Condition is Stable. Problem is new. Symptoms have improved. tl1 01/09 00:17 [id number] 23:00 01/09/2020 04:25 Hospitalization Ordered by Zheng Murillo MD for Inpatient ea Admission. Preliminary diagnosis is Fever. Pain right upper extremity. Recurrent cellulitis . Bed requested for Intensive Care Unit. Status is Inpatient Admission. Condition is Stable. Problem is new. Symptoms have improved. gloria
[2020-01-09 04:38] LABS: Urine Blood TRACE (NEG); Urine Glucose NEGATIVE (NEG); Urine Protein NEGATIVE (NEG); Urine Specific Gravity 1.025 (1.005-1.030); Urine pH 5.5 (5.0-7.0)
[2020-01-09] MEDS: NA CHLORIDE 0.9% 1,000 ML IV SCH ×2 (05:00→14:02)
[2020-01-09] MEDS: CEFTRIAXONE/SWI 1gm 1 GM/10 ML SYR IV SCH ×2 (05:59→18:00)
[2020-01-09] MEDS: CLINDAMYCIN PHOSPHATE 900 MG in NA CHLORIDE 0.9% 50 ML IV SCH ×3 (06:00→18:00)
--- NOTE | 2020-01-09 07:37 | RAD REPORT ---
EXAM DESCRIPTION: RAD - Chest Single View - 01/09/2020 2:38 am CLINICAL HISTORY: PAIN, right arm and chest pain, possible COVID infection due to loss of smell, [facility] cancer history COMPARISON: Chest exam December 2018 TECHNIQUE: AP portable chest image was obtained 01/09/2020 2:38 am . FINDINGS: Lungs are clear. Right hemidiaphragm is elevated relative to the left. Numerous surgical c lips overlie the right chest and breast region. Heart and vasculature are normal. No measurable pleur al effusion and no pneumothorax. No acute bony abnormality seen. No acute aortic findings suspected. IMPRESSION: No acute cardiopulmonary process. No worrisome change from comparison.
--- NOTE | 2020-01-09 10:55 | EKG ---
Test Date: 2020-01-09 Test Time: 02:29:58 Commercial Relief Driver: MEASUREMENT RESULTS: Intervals: Rate: 114 MS: 150 QRSD: 72 QT: 334 QTc: 460 [place]: P: 56 MS: 150 QRS: 28 T: 95 INTERPRETIVE STATEMENTS: Sinus tachycardia Nonspecific T wave abnormality Abnormal ECG Compared to ECG 01/27/2017 06:10:19 Sinus rhythm no longer present T-wave abnormality still present Electronically Signed On 01-09-20 10:53:52 CDT by Luis Fontenot
[2020-01-09] MEDS: ACETAMINOPHEN 500 MG TAB PO PRN (12:41)
[2020-01-09] MEDS ORDERED: NA CHLORIDE 0.9% 1,000 ML ONE (13:48)
[2020-01-10] MEDS: CLINDAMYCIN PHOSPHATE 900 MG in NA CHLORIDE 0.9% 50 ML IV SCH ×4 (00:45→17:37)
[2020-01-10] MEDS: NA CHLORIDE 0.9% 1,000 ML IV SCH ×2 (01:00→11:00)
[2020-01-10] MEDS: CEFTRIAXONE/SWI 1gm 1 GM/10 ML SYR IV SCH ×2 (04:49→17:38)
[2020-01-10 05:12] LABS: Absolute Lymphocytes (CBC) 1.1 K/uL (0.7-4.9); Basophils % 0.6 % (0-1.3); Hematocrit 34.7 % (36.0-45.0); Lymphocytes % 27.6 % (15.3-44.8); MPV 9.2 fL (7.6-11.3); RBC Red Blood Cell Count 4.16 M/uL (3.86-4.86)
[2020-01-10 05:26] VITALS: BMI 31.7
[2020-01-10 05:31] LABS: BUN Blood Urea Nitrogen 8 mg/dL (7-18); Bicarbonate 22 mmol/L (21-32); Glucose Level 99 mg/dL (74-106); Potassium 3.5 mmol/L (3.5-5.1); Sodium Level 143 mmol/L (136-145)
[2020-01-10] MEDS ORDERED: POTASSIUM CL SA 10 MEQ TAB PO ONE (07:40)
[2020-01-10] MEDS ORDERED: ALPRAZOLAM 0.25 MG TABLET PO PRN (09:44)
--- NOTE | 2020-01-10 10:23 | PN ---
The COVID test came back positive. She will be therefore admitted to 4th floor; however, due to the overflow, temporarily she was placed in the ICU. Her temperature has dropped. She still anorectic a nd the erythema has improved somewhat. I will discuss the case with Dr. Maradiaga and . HR/MODL Voice ID: [id number] Report ID: [id number]
--- NOTE | 2020-01-10 10:23 | HP ---
Date of Admission: 01/09/2020 Chief Complaint: Painful right arm. History Of Present Illness: The patient has a long history of cellulitis, lymphangitis of this arm s econdary to lymph node dissection secondary to breast cancer a number of years ago, hospitalization r equired 3 or 4 times a year and actually she had recently been hospitalized for this and doing well u ntil this onset, which is in keeping with her usual clinical picture. A complicating factor this anthony springer is that she has been close to COVID-19; however, the son who was diagnosed with a number of weeks a go, apparently has been told that he was negative; however, she was in contact with him the day befor e this incident. Past Medical History: Other than the above, good general health. Social History: Nonsmoker, nondrinker. Family History: Noncontributory. Physical Examination: General: Patient is a well-built, middle-aged female. Vital Signs: Temperature 102.4. The remainder of her vital signs are stable. Head and Neck: Normocephalic. Pupils are equal and reactive to light and accommodation. Fundi negat yuli. Trachea midline. Thyroid not palpable. ENT: Negative. Chest: Clear to P and A. cardiovascular: PMI at midclavicular line. Heart sounds normal. Peripheral pulses are present and equal bilaterally. Abdomen: No organomegaly, bowel sounds present. Extremities: All extremities normal except for the right arm, which shows a marked amount of erythema and tenderness from mid biceps area down to the up per forearm, some point tenderness on the elbow. This is compatible with her usual findings; however , temperature is more elevated than her usual onset of this disease and therefore we need COVID resul ts before making a disposition within the hospital. Rectal: Deferred. Pelvic: Deferred. Impression: Cellulitis, lymphangitis of right arm. Plan: Patient will be admitted, started on her usual IV antibiotics of clindamycin and Rocephin to w [facility] she responds really well. She may be little more toxic at this time and has some question about her COVID, so this was done, however the rapid one was not obtained and therefore due to the circums tances, . HR/MODL Voice ID: [id number]
--- NOTE | 2020-01-10 11:05 | P.PN ---
Subjective Date of Service: 01/10/20 Primary Care Provider: Dr. Murillo(Covering for him) Subjective: Improving (Patient right upper extremity improved. Still with swelling. No significant erythema) Physical Examination - Vital Signs Temperature: 97.3 F Blood Pressure: 141/73 Pulse: 81 Respirations: 16 Pulse Ox (%): 97 - Physical Exam General: Alert, In no apparent distress, Oriented x3, Cooperative HEENT: Atraumatic Neck: Supple Respiratory: Clear to auscultation bilaterally, Normal air movement Cardiovascular: Normal pulses, Regular rate/rhythm Gastrointestinal: Normal bowel sounds Integumentary: Other (Some swelling to the right upper extremity. No erythema noted. Pain stable.) Neurological: Normal speech, Normal strength at 5/5 x4 extr, Normal tone, Normal affect - Studies Medications List Reviewed: Yes Assessment & Plan Discharge Plan: Home Plan to discharge in: 48 Hours Physician Review Additional Text: Impression: Right upper extremity recurrent cellulitis/lymphangitis Positive COVID19, asymptomatic Depression Hyperlipidemia GERD Plan: Right upper extremity recurrent cellulitis/lymphangitis: Case discussed with her PCP who is not able to see her due to her positive COVID test. He asks me to assume care. Patient stable this time. Continue current antibiotic therapy Rocephin and clindamycin. Overall improved. Anticipate improvement over the next 1-2 days. I will update PCP. Positive COVID19, asymptomatic: Patient tested positive. She is asymptomatic at this time. Depression: Continue with meds. Hyperlipidemia: Continue with current medication GERD: Continue current medication Time Spent Managing Pts Care (In Minutes): 55
[2020-01-10] MEDS: ACETAMINOPHEN 500 MG TAB PO PRN ×2 (12:11→21:47)
[2020-01-10] MEDS ORDERED: ENOXAPARIN 40 MG/0.4 ML SQ SCH (17:00)
[2020-01-10] MEDS ORDERED: PANTOPRAZOLE 40MG TABLET PO SCH (21:00)
[2020-01-10] MEDS ORDERED: ESCITALOPRAM 20 MG TAB PO SCH (21:00)
[2020-01-10] MEDS ORDERED: ATORVASTATIN 20 MG TAB PO SCH (21:00)
[2020-01-11] MEDS: CLINDAMYCIN PHOSPHATE 900 MG in NA CHLORIDE 0.9% 50 ML IV SCH ×3 (00:29→12:19)
[2020-01-11] MEDS ORDERED: CALCIUM GLUCONATE 1 GM IVPB 2 GM/100 ML BAG IV ONE (04:01)
[2020-01-11] MEDS: CEFTRIAXONE/SWI 1gm 1 GM/10 ML SYR IV SCH (05:00)
[2020-01-11] MEDS: ACETAMINOPHEN 500 MG TAB PO PRN (05:28)
[2020-01-11] MEDS ORDERED: HOME MED 1 EA UNK (Pitavastatin Calcium [Livalo] 4 MG) PO SCH (09:00)
[2020-01-11 11:00] VITALS: O2SAT 96
--- NOTE | 2020-01-11 13:30 | P.DS ---
Admission Date: 01/09/20 Discharge Date: 01/11/20 Primary Care Provider: Dr. Mruillo(Covering for him) Disposition: ROUTINE DISCHARGE Discharge Condition: GOOD Reason for Admission: Cellulitis/lymphangitis Consultations: none Procedures: CXR: COMPARISON: Chest exam December 2018 TECHNIQUE: AP portable chest image was obtained 01/09/2020 2:38 am . FINDINGS: Lungs are clear. Right hemidiaphragm is elevated relative to the left. Numerous surgical clips overlie the right chest and breast region. Heart and vasculature are normal. No measurable pleural effusion and no pneumothorax. No acute bony abnormality seen. No acute aortic findings suspected. IMPRESSION: No acute cardiopulmonary process. No worrisome change from comparison. Medical Problem List: Right upper recurrent extremity cellulitis/lymphangitis Asymptomatic COVID 19 positive Hyperlipidemia Depression with anxiety GERD Brief History of Present Illness: 54 year female presented to the emergency room with cellulitis to the right upper extremity. Patient is had recurrent cellulitis and lymphangitis to the same arm. Patient with history of lymph node dissection in the past due to cancer. Patient was admitted for treatment. Hospital Course: Patient was admitted for right upper extremity recurrent cellulit is/lymphangitis. Patient received IV antibiotic therapy. Patient has significantly improved. Case discussed with her PCP. Patient will go home on clindamycin 300 mg 1 pill 3 times a day for 10 days. Recommend follow up with PCP in 1-2 weeks to follow up this hospitalization. Patient was positive for COVID 19. Chest x-ray unremarkable. Patient asymptomatic. Recommend CDC guidelines. Patient is to quarantine for 14 days. Infection control will get a hold of the health department so that she can be followed closely. Continue social distancing, hand washing and facemask. This can be further addressed by her PCP. Patient with history of GERD, hyperlipidemia, and depression with anxiety. At discharge she may continue with her medications. Vital Signs/Physical Exam: Temp Pulse Resp BP Pulse Ox 97.8 F 87 17 131/66 97 01/11/20 08:48 01/11/20 08:48 01/11/20 08:48 01/11/20 08:48 01/11/20 08:48 General: Alert, In no apparent distress, Oriented x3, Cooperative HEENT: Atraumatic Neck: Supple Respiratory: Other (Patient breathing appropriately) Cardiovascular: Normal pulses Integumentary: Other (Right upper extremity shows no erythema. Swelling has significantly improved. No significant pain noted.) Neurological: Normal speech, Normal strength at 5/5 x4 extr, Normal tone, Normal affect Laboratory Data at Discharge: WBC 4.0 K/uL (4.3-10.9) L D 01/10/20 04:56 Hgb 11.6 g/dL (12.0-15.0) L 01/10/20 04:56 Hct 34.7 % (36.0-45.0) L 01/10/20 04:56 Plt Count 142 K/uL (152-406) L D 01/10/20 04:56 PT 12.4 SECONDS (9.5-12.5) 01/09/20 02:54 INR 1.05 01/09/20 02:54 APTT 32.5 SECONDS (24.3-36.9) 01/09/20 02:54 Sodium 143 mmol/L (136-145) 01/10/20 04:56 Potassium 3.9 mmol/L (3.5-5.1) 01/11/20 04:55 BUN 8 mg/dL (7-18) 01/10/20 04:56 Creatinine 0.68 mg/dL (0.55-1.3) 01/10/20 04:56 Glucose 99 mg/dL (74-106) 01/10/20 04:56 Total Bilirubin 0.5 mg/dL (0.2-1.0) 01/09/20 02:54 AST 55 U/L (15-37) H 01/09/20 02:54 ALT 50 U/L (12-78) 01/09/20 02:54 Alkaline Phosphatase 115 U/L (45-117) 01/09/20 02:54 Amylase 40 U/L (25-115) 01/09/20 02:54 Lipase 164 U/L (73-393) 01/09/20 02:54 Home Medications: Alprazolam [Xanax] 0.25 mg PO DAILY PRN 12/09/19 Dextroamphetamine/Amphetamine [Adderall 20 mg Tablet] 20 mg PO DAILY 12/09/19 Escitalopram [Lexapro*] 20 mg PO BEDTIME 12/09/19 Pantoprazole Sodium [Protonix] 40 mg PO BEDTIME 12/09/19 Pitavastatin Calcium [Livalo] 4 mg PO DAILY 12/09/19 clindamycin HCL [Clindamycin HCl] 300 mg PO TID #30 capsule 01/11/20 New Medications: clindamycin HCL [Clindamycin HCl] 300 mg PO TID #30 capsule Patient Discharge Instructions: 1. Recommend follow up in 1-2 weeks to follow up this hospitalization with PCP. 2. Patient was admitted for right upper extremity recurrent cellulitis/lymphangitis. Patient received IV antibiotic therapy. Patient has significantly improved. Case discussed with her PCP. Patient will go home on clindamycin 300 mg 1 pill 3 times a day for 10 days. Recommend follow up with PCP in 1-2 weeks to follow up this hospitalization. 3. Patient was positive for COVID 19. Chest x-ray unremarkable. Patient asymptomatic. Recommend CDC guidelines. Patient is to quarantine for 14 days. Infection control will get a hold of the health department so that she can be followed closely. Continue social distancing, hand washing and facemask. This can be further addressed by her PCP. 4. Patient with history of GERD, hyperlipidemia, and depression with anxiety. At discharge she may continue with her medications. Diet: AHA Activity: Ad winnie Time spent managing pt's care (in minutes): 55
[2020-01-11 14:07] VITALS: TEMP 99.1
[2020-01-11 15:04] VITALS: BP 130/66
== END 2020-01-11 14:55 | disposition home or self-care (01) | DRG 602 ==
LOC: ER 01:43 → ERHOLD 04:41 → 3RD-ICU 23:45
PROVIDERS: ADMIT Family Medicine; ATTEND Family Medicine
PROC: 8E0ZXY6 Isolation (ICD-10-PCS; principal; 2020-01-09)
DX: L03.113 Cellulitis of right upper limb (principal); U07.1 COVID-19; F32.9 Major depressive disorder, single episode, unspecified; E78.5 Hyperlipidemia, unspecified; K21.9 Gastro-esophageal reflux disease without esophagitis; Z85.3 Personal history of malignant neoplasm of breast; Z88.1 Allergy status to other antibiotic agents; Z88.5 Allergy status to narcotic agent; Z88.0 Allergy status to penicillin; Z88.8 Allergy status to other drugs, medicaments and biological substances; Z79.01 Long term (current) use of anticoagulants; Z79.899 Other long term (current) drug therapy
CPT/HCPCS: 36415; 71045; 80048; 80076; 81003; 81015; 81025; 82150; 82550; 82553; 82947; 83605; 83690; 84132; 84145; 84484; 85025; 85610; 85730; 87040; 93005; 96365; 96375; 99285; J0610; J0696; J1650; J7030; J7040; S0077

== ENCOUNTER 2021-03-30 09:09 | Inpatient (IN) | payer BC, SELFPAY ==
[2021-03-30 09:57] LABS: Absolute Lymphocytes (CBC) 1.7 K/uL (0.7-4.9); Basophils % 0.4 % (0-1.3); MPV 8.7 fL (7.6-11.3); RBC Red Blood Cell Count 5.08 M/uL (3.86-4.86)
[2021-03-30 10:10] LABS: Albumin 4.2 g/dL (3.4-5.0); Bilirubin Total 0.6 mg/dL (0.2-1.0); Potassium 4.6 mmol/L (3.5-5.1)
--- NOTE | 2021-03-30 11:15 | RAD REPORT ---
EXAM DESCRIPTION: US - Extremity Venous Uni Ltd - 03/30/2021 10:30 am CLINICAL HISTORY: Right arm pain and swelling COMPARISON: None. TECHNIQUE: Real-time sonographic evaluation of the right upper extremity deep venous systems was per formed. FINDINGS: Normal compressibility, flow augmentation, phasic flow and spontaneous flow are identified in the right upper extremity deep venous system. No intraluminal filling defects seen. Internal jugu lar and subclavian veins are normal as well. IMPRESSION: No DVT in the right upper extremity.
--- NOTE | 2021-03-30 11:43 | ER ---
Nurse's Notes [facility] Name: Jerilyn Johnson Age: 55 yrs Sex: Female : 1965 Arrival Date: 03/30/2021 Time: 09:12 Bed 26 Private MD: Zheng Murillo Diagnosis: Cellulitis of right upper limb Presentation: 03/30 09:16 Chief complaint: Patient states: Swelling and rash that woke Pt up. Has had cellulitis ch5 in arm before. 04/13. Coronavirus screen: Vaccine status: Patient reports receiving the 2nd dose of the covid vaccine. Ebola Screen: Patient negative for fever greater than or equal to 101.5 degrees Fahrenheit, and additional compatible Ebola Virus Disease symptoms Patient denies exposure to infectious person. Patient denies travel to an Ebola-affected area in the 21 days before illness onset. Initial Sepsis Screen: Does the patient meet any 2 criteria? No. Patient's initial sepsis screen is negative. Does the patient have a suspected source of infection? Yes:. Risk Assessment: Do you want to hurt yourself or someone else? Patient reports no desire to harm self or others. Onset of symptoms was March 30, 2021. 09:16 Method Of Arrival: Ambulatory 5 09:16 Acuity: IRVIN 3 ch5 Triage Assessment: 09:20 General: Appears uncomfortable, Behavior is calm. Pain: Complains of pain in right arm ch5 Pain currently is 10 out of 10 on a pain scale. 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 - Social history:: Smoking status: Patient denies any tobacco usage or history of. Screenin:52 Abuse screen: Denies threats or abuse. Denies injuries from another. Nutritional tc5 screening: No deficits noted. Tuberculosis screening: No symptoms or risk factors identified. 09:52 Fall Risk None identified. tc5 Assessment: 09:47 General: Appears uncomfortable, Behavior is calm, cooperative, appropriate for age. tc5 Pain: Complains of pain in right arm. Neuro: No deficits noted. Cardiovascular: Reports no lymphnodes on RUE. Respiratory: No deficits noted. GI: No deficits noted. : No deficits noted. Derm: Reports hives and swelling to RUE, states she has HX BRCA, no Lymphnodes to that arm, any time that are gets hit or iv it swells and gets hives, states rt arm was hit couple days ago, this am she was woke with pain and hives to RU. Pt brought her personal Tylenol, states she don't like to take anything stronger, Sean VALENCIA tell pt it ok for her to take her Tylenol so pt did. 19:15 Reassessment: Patient appears in no apparent distress at this time. Resting quietly in cc4 bed with \T\ bedside; rports tenderness \T\ increased warmth right arm; redness \T\ increased warmth palpable right arm with small to mod edema noted; reports allergies: sulfa; penicillin; levaquin; phenergan; codeine; reports all allergies cause nausea/vomiting only; # 20g saline lock intact left AC with no redness or edema noted of site; report telephoned to ARIS Barajas of 4th floor; NADN.. 19:55 Reassessment: Patient appears in no apparent distress at this time. No changes from cc4 previously documented assessment. Transferred to room # 425 via wheelchair accompanied by career and technology education teacher \T\ ; NADN.. Vital Signs: 09:16 BP 142 / 76; Pulse 97; Resp 18; Temp 96.8(T); Pulse Ox 99% ; Weight 78.02 kg; Height 5 ch5 ft. 3 in. (160.02 cm); Pain 10/10; 09:19 BP 142 / 76; Pulse 97; Resp 18; Pain 10/10; ch5 19:15 BP 118 / 63; Pulse 106; Resp 22; Temp 98.7; Pulse Ox 97% ; cc4 09:16 Body Mass Index 30.47 (78.02 kg, 160.02 cm) ch5 ED Course: 09:12 Patient arrived in ED. mr 09:13 Zheng Murillo MD is Private Physician. mr 09:19 Triage completed. ch5 09:19 Arm band placed on left wrist. ch5 09:22 Arlen Montano RN is Primary Nurse. tc5 09:23 Sean Chino NP is PHCP. pm1 09:23 Yan Ventura MD is Attending Physician. pm1 09:30 Sheng Kaur MD is Attending Physician. pm1 09:41 Patient has correct armband on for positive identification. Bed in low position. Call mh5 light in reach. Side rails up X 1. Warm blanket given. Pulse ox on. NIBP on. 09:42 Initial lab(s) drawn, by ED staff, sent to lab. mh5 09:46 Inserted saline lock: 20 gauge in left antecubital area, using aseptic technique. tc5 09:46 ICE PACK. mh5 09:54 US at bedside. tc5 10:29 Extremity Venous Uni Ltd US In Process Unspecified. EDMS 11:36 Blood Culture Adult (2) Sent. tc5 11:42 Zheng Murillo MD is Hospitalizing Provider. pm1 19:15 Patient has correct armband on for positive identification. Allergy band applied with cc4 rported allergies; sulfa; codeine; levaquin; pencillin; phenergan; reports all meds listed cause nausea/vomiting only. Report given to ARIS Barajas of 4th floor. 19:15 No provider procedures requiring assistance completed. cc4 19:55 IV is intact, Converted IV to saline lock on left antecubital area cc4 Administered Medications: 11:30 CANCELLED (Physician Discretion): vancoMYCIN 1 grams IVPB once over 2 hrs pm1 12:06 Drug: Rocephin (cefTRIAXone) 1 grams Route: IV; Rate: calculated rate; Site: left tc5 antecubital; 15:01 Follow up: Response: No adverse reaction tc5 12:09 Drug: Clindamycin 900 mg Route: IVPB; Infused Over: 30 mins; Site: left antecubital; tc5 15:01 Follow up: IV Status: Completed infusion; IV Intake: 50ml tc5 Intake: 15:01 IV: 50ml; Total: 50ml. tc5 Outcome: 11:43 Decision to Hospitalize by Provider. pm1 19:15 Instructed on the need for admit. cc4 19:55 Condition: stable cc4 20:44 Patient left the ED. em 20:47 Admitted to Med/surg accompanied by tech, family with patient, room 425, Report called cc4 to ARIS Barajas Signatures: Dispatcher MedHoSherry Mccoy Edgar, RN Hilary Cartagena RN RN ss Sean Chino, BED SETTER BED SETTER pm1 Chantal Akbar 5 Rl Stevens RN RN ch5 Julita Stewart RN RN cc4 Arlen Montano RN RN tc5 Corrections: (The following items were deleted from the chart) : PMHx: reflux; ch5 ch5 : PMHx: Anxiety; ch5 ch5 PMHx: BREAST CA; ch5 ch5 : PMHx: Cellulitis; ch5 ch5
--- NOTE | 2021-03-30 11:43 | EDPHYS ---
Physician Documentation [facility] Name: Jerilyn Johnson Age: 55 yrs Sex: Female : 1965 Arrival Date: 03/30/2021 Time: 09:12 Bed 26 Private MD: Zheng Murillo ED Physician Sheng Kaur HPI: 03/30 09:46 This 55 yrs old Female presents to ER via Ambulatory with complaints of Arm pm1 Swelling. 09:46 The patient or guardian complains of pain, swelling. The complaints affect the dorsal pm1 aspect of right forearm, right tricep and palmar aspect of right forearm. Context: The problem was sustained at home, resulted from unknown cause, But similar to prior presentation of cellulitis. Onset: The symptoms/episode began/occurred this morning. Treatment prior to arrival includes: no previous treatment. Modifying factors: The symptoms are alleviated by nothing. the symptoms are aggravated by nothing. Associated signs and symptoms: Pertinent positives: Subjective fever, Pertinent negatives: decreased range of motion, deformity. Severity of symptoms: in the emergency department the symptoms are unchanged. The patient has experienced similar episodes in the past, multiple times. The patient has not recently seen a physician, the patient's primary care provider is Dr. Murillo. 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 - Social history:: Smoking status: Patient denies any tobacco usage or history of. ROS: 09:46 Cardiovascular: Negative for chest pain, palpitations, and edema, Respiratory: Negative pm1 for shortness of breath, cough, wheezing, and pleuritic chest pain, Abdomen/GI: Negative for abdominal pain, nausea, vomiting, diarrhea, and constipation. 09:46 Neuro: Negative for headache, weakness, numbness, tingling, and seizure. 09:46 Constitutional: Positive for fever, Negative for poor PO intake. 09:46 MS/extremity: Positive for pain, swelling, of the right arm. 09:46 Skin: Positive for cellulitis, of the right arm. 09:46 All other systems are negative. Exam: 09:46 Constitutional: This is a well developed, well nourished patient who is awake, alert, pm1 and in no acute distress. Head/Face: Normocephalic, atraumatic. 09:46 Eyes: Exam is negative for acute changes, Extraocular movements: no acute changes. 09:46 ENT: Exam is negative for acute changes, Mouth: no acute changes, Lips: normal, moist, Oral mucosa: normal, pink and intact, moist. 09:46 Cardiovascular: Exam negative for acute changes, Rate: normal, Rhythm: regular, Pulses: no pulse deficits are appreciated. 09:46 Respiratory: Exam negative for acute changes, respiratory distress, shortness of breath. 09:46 Abdomen/GI: Exam negative for acute changes, Inspection: abdomen appears normal, Palpation: abdomen is soft and non-tender, in all quadrants. 09:46 Musculoskeletal/extremity: Extremities: grossly normal except: noted in the right arm: erythema, swelling, tenderness. 09:46 Skin: Appearance: normal except for affected area, cellulitis, that is moderate, on the dorsal aspect of right forearm and palmar aspect of right forearm, Possible urticaria present to tricep area. 09:46 Neuro: Exam negative for acute changes, Orientation: is normal, Mentation: is normal, Motor: is normal, moves all fours, Sensation: is normal, no obvious gross deficits. Vital Signs: 09:16 BP 142 / 76; Pulse 97; Resp 18; Temp 96.8(T); Pulse Ox 99% ; Weight 78.02 kg; Height 5 ch5 ft. 3 in. (160.02 cm); Pain 10/10; 09:19 BP 142 / 76; Pulse 97; Resp 18; Pain 10/10; ch5 19:15 BP 118 / 63; Pulse 106; Resp 22; Temp 98.7; Pulse Ox 97% ; cc4 09:16 Body Mass Index 30.47 (78.02 kg, 160.02 cm) ch5 MDM: 09:28 Patient medically screened. pm1 09:31 ED course: Patient refused pain medication offered. Patient wanted to take her own pm1 Tylenol. 11:26 Physician consultation: Zheng Murillo MD was called at 11:36, regarding admission, pm1 patient's condition, and will see patient tomorrow, would like medications started, Clindamycin 900 mg IV Q8 hr and Rocephin 1 gm Q12 hr, Tylenol PRN, Xanax PRN, NS 100 ml/hr, and repeat labs in the AM. 14:15 Data interpreted: Pulse oximetry: on room air is 99 %. Interpretation: normal. pm1 18:00 Data reviewed: vital signs. pm1 03/30 09:30 Order name: CBC with Diff; Complete Time: 10:24 pm1 03/30 09:30 Order name: CMP; Complete Time: 10:24 pm1 03/30 09:30 Order name: Procalcitonin; Complete Time: 10:52 pm1 03/30 09:30 Order name: Lactate; Complete Time: 10:24 pm1 03/30 11:21 Order name: Blood Culture Adult (2) pm1 03/30 12:05 Order name: COVID-19 : Document "Date of Symptom Onset" if Symptomatic. eb 03/30 09:30 Order name: Extremity Venous Uni Ltd US; Complete Time: 11:20 pm1 03/30 09:30 Order name: IV Saline Lock; Complete Time: 09:46 pm1 03/30 09:46 Order name: Ice pack; Complete Time: 09:46 5 03/30 14:04 Order name: SARS-COV-2 RT PCR; Complete Time: 14:15 EDMS Administered Medications: 11:30 CANCELLED (Physician Discretion): vancoMYCIN 1 grams IVPB once over 2 hrs pm1 12:06 Drug: Rocephin (cefTRIAXone) 1 grams Route: IV; Rate: calculated rate; Site: left tc5 antecubital; 15:01 Follow up: Response: No adverse reaction tc5 12:09 Drug: Clindamycin 900 mg Route: IVPB; Infused Over: 30 mins; Site: left antecubital; tc5 15:01 Follow up: IV Status: Completed infusion; IV Intake: 50ml tc5 Disposition Summary: 03/30/21 11:43 Hospitalization Ordered Hospitalization Status: Inpatient Admission pm1 Provider: Zheng Murillo pm1 Condition: Stable pm1 Problem: new pm1 Symptoms: have improved pm1 Bed/Room Type: Standard pm1 Location: Telemetry/MedSurg (Inpatient)(03/30/21 18:42) sv Room Assignment: 425(03/30/21 18:42) sv Diagnosis - Cellulitis of right upper limb pm1 Forms: - Medication Reconciliation Form pm1 - SBAR form pm1 Addendum: 04/04/2021 04:29 Co-signature as Attending Physician, Sheng Kaur MD. m a2 04:29 PA/ENVIRONMENTAL MONITORING TECHNICIAN's history reviewed, patient interviewed, and examined. I agree with assessment m a2 and care plan and confirm the diagnosis (es) above. Signatures: Dispatcher [employer] Esmer Arauz RN RN sv Smirch, Shelby, RN RN Sean Chino NP ENVIRONMENTAL MONITORING TECHNICIAN pm1 Chantal Akbar [facility] Sheng Kaur MD MD tn2 Rl Stevens RN RN ch5 Arlen Montano RN RN tc5 Corrections: (The following items were deleted from the chart) 03/30 09:19 09:19 PMHx: reflux; ch5 ch5 09:19 09:19 PMHx: Anxiety; ch5 ch5 09:19 09:19 PMHx: BREAST CA; ch5 ch5 09:19 09:19 PMHx: Cellulitis; ch5 ch5 11:30 11:21 vancoMYCIN 1 grams IVPB once over 2 hrs ordered. pm1 pm1 14:16 11:43 Telemetry/MedSurg (Inpatient) pm1 sv 14:16 11:43 pm1 sv 18:42 14:16 [facility] ER HOLD sv sv 18:42 14:16 ERHOLD- sv sv
[2021-03-30] MEDS ORDERED: CEFTRIAXONE 1000 MG/VIAL ONE ×2 (12:03→22:52)
[2021-03-30] MEDS ORDERED: CLINDAMYCIN 900MG/D5W 900 MG/50 ML IVPB IV ONE (12:03)
[2021-03-30] MEDS: NA CHLORIDE 0.9% 1,000 ML IV SCH (14:14)
[2021-03-30] MEDS ORDERED: ACETAMINOPHEN 500 MG TAB PO PRN (14:14)
[2021-03-30 14:55] VITALS: BMI 30.2
[2021-03-30] MEDS ORDERED: NA CHLORIDE 0.9% 1,000 ML ONE (16:20)
[2021-03-30] MEDS ORDERED: ACETAMINOPHEN 500 MG TAB ONE (16:34)
[2021-03-30] MEDS: CLINDAMYCIN PHOSPHATE 900 MG in NA CHLORIDE 0.9% 50 ML IV SCH (20:50)
[2021-03-30] MEDS: CEFTRIAXONE 1 GM/NS 50 ML 1 GM/50 ML BAG IV SCH (21:00)
[2021-03-30] MEDS ORDERED: NA CHLORIDE 0.9% 50 ML ONE (21:11)
[2021-03-30] MEDS ORDERED: CLINDAMYCIN IV 150 MG/ML (6 mL) VIAL ONE (21:23)
[2021-03-30] MEDS ORDERED: NA CHLORIDE 0.9% 100 ML ONE (22:52)
[2021-03-31] MEDS: NA CHLORIDE 0.9% 1,000 ML IV SCH ×3 (00:14→20:49)
[2021-03-31] MEDS: CLINDAMYCIN PHOSPHATE 900 MG in NA CHLORIDE 0.9% 50 ML IV SCH ×4 (01:00→17:35)
[2021-03-31 04:25] LABS: Absolute Lymphocytes (CBC) 1.4 K/uL (0.7-4.9); Basophils % 0.2 % (0-1.3); Hematocrit 34.7 % (36.0-45.0); Lymphocytes % 12.8 % (15.3-44.8); RBC Red Blood Cell Count 4.09 M/uL (3.86-4.86)
[2021-03-31 04:36] LABS: BUN Blood Urea Nitrogen 14 mg/dL (7-18); Bicarbonate 25 mmol/L (21-32); Glucose Level 119 mg/dL (74-106); Potassium 4.1 mmol/L (3.5-5.1); Sodium Level 140 mmol/L (136-145)
[2021-03-31] MEDS: ALPRAZOLAM 0.25 MG TABLET PO SCH ×2 (09:00→09:23)
[2021-03-31] MEDS: CEFTRIAXONE 1 GM/NS 50 ML 1 GM/50 ML BAG IV SCH ×2 (09:56→20:55)
--- NOTE | 2021-03-31 16:20 | HP ---
Date of Admission: 03/30/2021 Entrance Complaint: Painful right arm. History Of Present Illness: The patient has a long history of multiple hospitalizations for cellulit is and lymphangitis of the right arm. This was rather a sudden onset. In some cases, she has some e yelitza symptoms; however, she states this will occur in the middle of night and her arm was quite red f rom the typical area involved the right upper anterior arm down to the right anterior lower arm. She was seen in the emergency room and admitted for more intensive care. Past History: As above. The patient had breast cancer a number of years ago, at which time, a lymph adenopathy was performed. Since then, she has developed lymphedema with recurrent cellulitis. She h as been evaluated by MD Chiu with possibility of surgical procedure; however, presently that is o n hold. Other than this, she has been in good general health. Family History: Noncontributory. Social History: Noncontributory. Physical Examination: General: The patient is a well-built, middle-aged female. Vital Signs: Stable vital signs. Head and Neck: Normocephalic. Pupils are equal and reactive to accommodation. Fundi negative. Tra marisela midline. Thyroid not palpable. ENT: Negative. Chest: Clear to P and A. Cardiovascular: PMI midclavicular line. Heart sounds normal. Peripheral pulses present and equal bilaterally. Abdomen: No organomegaly. Bowel sounds present. Extremities: All extremities normal except for the right upper extremity which does show an area of rather marked cellulitis from the mid anterior portion of the upper arm down to the lower arm and the anterior surface. She has good motion. Rectal: Deferred. Pelvic: Deferred. Impression: Cellulitis of the arm secondary to lymphedema, breast carcinoma by history. Plan: The patient was admitted, placed on her usual medications of clindamycin IV and Rocephin IV. Depending on the response and determining the length of time before we safely switch to p.o. when she can be discharged. HR/MODL Voice ID: [id number]
[2021-03-31] MEDS: ATORVASTATIN 20 MG TAB PO SCH ×2 (20:50→21:04)
[2021-03-31] MEDS: ESCITALOPRAM 20 MG TAB PO SCH (21:05)
[2021-03-31] MEDS: PANTOPRAZOLE 40MG TABLET PO SCH (21:05)
[2021-04-01] MEDS: CLINDAMYCIN PHOSPHATE 900 MG in NA CHLORIDE 0.9% 50 ML IV SCH ×3 (00:43→18:02)
[2021-04-01] MEDS ORDERED: CLINDAMYCIN IV 150 MG/ML (6 mL) VIAL ONE (01:40)
[2021-04-01] MEDS ORDERED: HOME MED 1 EA UNK (Pitavastatin Calcium [Livalo] 4 MG Tablet) PO SCH (09:00)
[2021-04-01] MEDS: ALPRAZOLAM 0.25 MG TABLET PO SCH (09:00)
[2021-04-01] MEDS: CEFTRIAXONE 1 GM/NS 50 ML 1 GM/50 ML BAG IV SCH ×2 (09:00→20:32)
[2021-04-01] MEDS: NA CHLORIDE 0.9% 1,000 ML IV SCH ×2 (10:00→18:02)
--- NOTE | 2021-04-01 20:28 | PN ---
Date of Progress Note: 04/01/2021 The patient shows significant improvement in the erythema and tenderness; however, still present. It was felt that another 24 hours of IV antibiotics will suffice and she will probably be discharged on IM and p.o. medications tomorrow. HR/MODL Voice ID: [id number] Report ID: [id number]
[2021-04-01] MEDS: PANTOPRAZOLE 40MG TABLET PO SCH (20:33)
[2021-04-01] MEDS: ESCITALOPRAM 20 MG TAB PO SCH (20:33)
[2021-04-02] MEDS: CLINDAMYCIN PHOSPHATE 900 MG in NA CHLORIDE 0.9% 50 ML IV SCH ×3 (01:11→16:43)
[2021-04-02] MEDS: NA CHLORIDE 0.9% 1,000 ML IV SCH ×2 (02:14→12:14)
[2021-04-02] MEDS: ALPRAZOLAM 0.25 MG TABLET PO SCH ×2 (09:00→09:13)
[2021-04-02] MEDS ORDERED: ALPRAZOLAM 0.25 MG TABLET PO PRN (09:18)
[2021-04-02] MEDS: CEFTRIAXONE 1 GM/NS 50 ML 1 GM/50 ML BAG IV SCH (10:21)
[2021-04-02 15:45] VITALS: O2SAT 95
[2021-04-02 16:58] VITALS: BP 163/82; TEMP 97.2
--- NOTE | 2021-04-02 19:34 | PN ---
Date of Progress Note: 04/02/2021 The patient's arm is much better. She has a little area of erythema, minimal tenderness to the upper portion of the arm; however, she was well enough to be discharged. She will be given Rocephin IM on an outpatient basis at the office x2 and restart Cleocin p.o. once she is discharged after her late afternoon dose of clindamycin IV. HR/MODL Voice ID: [id number] Report ID: [id number]
== END 2021-04-02 18:15 | disposition home or self-care (01) | DRG 603 ==
LOC: ER 09:09 → ERHOLD 11:56 → 4TH 19:51 → 2ND 04-01 06:18
PROVIDERS: ADMIT Family Medicine; ATTEND Family Medicine
DX: L03.113 Cellulitis of right upper limb (principal); I89.0 Lymphedema, not elsewhere classified; Z85.3 Personal history of malignant neoplasm of breast; Z88.2 Allergy status to sulfonamides; Z20.822 Contact with and (suspected) exposure to COVID-19
CPT/HCPCS: 36415; 80048; 80053; 83605; 84145; 85025; 87040; 87077; 87186; 87205; 93971; 96365; 96366; 96375; 99285; J0696; J7030; S0077; U0003

== ENCOUNTER 2021-09-07 12:21 | Emergency (ER) | payer BC, SELFPAY ==
--- OUTSIDE RECORDS SUMMARY | 2021-09-07 12:23 | XMS REPORT | Continuity of Care Document ---
:1965 Author Organization [facility] t Address [address] [place] [address] Care Team Providers Name Role Phone HEIDY Primary Care Physician Unavailable Javi BO Attending Clinician Unavailable JUDY Attending Clinician Unavailable Payers Payer Name Policy Type Policy Number Effective Date Expiration Date S ource [place] POS [id number] 00:00:00 [employer] [place] - [id number] 00:00:00 OUT OF STATE Problems This patient has no known problems. Allergies, Adverse Reactions, Alerts Allergy Allergy Status Severity Reaction(s) Onset Inactive Treating Comm ents Source Name Type Date Date Clinician CODEINE DRUG Active N/V 2015- [facility] INGREDI 6-14 ity of 00:00: [place] 00 [facility] LEVOFLOX DRUG Active SOB 0 [facility] ACIN INGREDI 6-14 ity of 00:00: [address] Branch PENICILL Drug Active Rash 2015-0 Univers INS Class 6-14 ity of 00:00: [place] 00 [facility] PROMETHA DRUG Active SOB 0 Univers ZINE HCL INGREDI 6-14 ity of 00:00: [place] 00 [facility] SULFA Drug Active N/V 0 Univers (SULFONA Class 6-14 ity of MIDE 00:00: [place] ANTIBIOT 00 [facility]) Branch Medications This patient has no known medications. Vital Signs Vital Name Observation Time Observation Value Comments Source HEIGHT 2020-10-18 07:47:00 161.5 cm WEIGHT 2020-10-18 07:47:00 79.5 kg Procedures This patient has no known procedures. Encounters Start End Encounter Admission Attending Care Care Encounter Source Date/Time Date/Time Type Type Clinicians Facility Department ID 2020-10-18 2020-10-18 Outpatient DAQUAN BO MDA MDA [id number] 07:29:00 08:43:05 CAROLYN andrews 2020-10-18 2020-10-18 Outpatient DQAUAN BO MDA MDA [id number] 06:41:05 06:41:05 CAROLYN andrews 2020-06-13 2020-06-13 Outpatient Jamin KIM [facility] [id number] Univers 10:45:00 10:45:00 PIETRO daniels [facility] Results This patient has no known results.
[2021-09-07] MEDS ORDERED: CLINDAMYCIN 900MG/D5W 900 MG/50 ML IVPB IV ONE (12:55)
[2021-09-07] MEDS ORDERED: NA CHLORIDE 0.9% 100 ML IV ONE (12:55)
[2021-09-07] MEDS ORDERED: CEFTRIAXONE 1000 MG/VIAL ONE (12:55)
[2021-09-07 12:57] LABS: Absolute Lymphocytes (CBC) 1.6 K/uL (0.7-4.9); Hematocrit 37.9 % (36.0-45.0); Lymphocytes % 29.6 % (15.3-44.8); MPV 9.2 fL (7.6-11.3); RBC Red Blood Cell Count 4.51 M/uL (3.86-4.86)
[2021-09-07 13:16] LABS: Potassium 4.1 mmol/L (3.5-5.1)
--- NOTE | 2021-09-07 14:15 | RAD REPORT ---
EXAM DESCRIPTION: US - UPPER EXTREMITY VENOUS UNILATE - 09/07/2021 1:56 pm CLINICAL HISTORY: Right arm pain and swelling COMPARISON: None. TECHNIQUE: Real-time sonographic evaluation of the right upper extremity deep venous systems was per formed. FINDINGS: Normal compressibility, flow augmentation, phasic flow and spontaneous flow are identified in the right upper extremity deep venous system. No intraluminal filling defects seen. Internal jugu lar and subclavian veins are normal as well. IMPRESSION: No DVT in the right upper extremity.
--- NOTE | 2021-09-07 14:24 | ER ---
Nurse's Notes [facility] Name: Jerilyn Johnson Age: 56 yrs Sex: Female : 1965 Arrival Date: 09/07/2021 Time: 12:25 Bed 18 Private MD: Zheng Murillo Diagnosis: Cellulitis of right upper limb Presentation: 09/07 12:36 Chief complaint: Patient states: "I am having this cellulitis again in my left arm. i jd3 am having pain and swelling.". Coronavirus screen: At this time, the client does not indicate any symptoms associated with coronavirus-19. Ebola Screen: No symptoms or risks identified at this time. Initial Sepsis Screen: Does the patient meet any 2 criteria? No. Patient's initial sepsis screen is negative. Does the patient have a suspected source of infection? No. Patient's initial sepsis screen is negative. Risk Assessment: Do you want to hurt yourself or someone else? Patient reports no desire to harm self or others. Onset of symptoms was September 06, 2021. 12:36 Acuity: IRVIN 3 jd3 12:36 Method Of Arrival: Ambulatory jd3 Historical: - Allergies: 12:37 Sulfa; jd3 12:37 Levaquin IV; jd3 12:37 Phenergan; jd3 12:37 codein; jd3 - Home Meds: 12:37 Lexapro 20 mg Oral tab [Active]; Protonix 40 mg Oral grps [Active]; Adderall oral jd3 [Active]; - PMHx: 12:54 GERD; Anxiety; ADD/ADHD; cellulitis; jd3 - PSHx: 12:37 Lumpectomy of breast; jd3 - Immunization history:: Adult Immunizations up to date, Client reports receiving the 2nd dose of the Covid vaccine, Pneumococcal vaccine is up to date, Flu vaccine is up to date. . - Social history:: Smoking status: Patient reports the use of cigarette tobacco products, smokes one-half pack cigarettes per day. Screenin:34 Abuse screen: Denies threats or abuse. Nutritional screening: No deficits noted. jh6 Tuberculosis screening: No symptoms or risk factors identified. Fall Risk None identified. Assessment: 12:32 General: Appears in no apparent distress. Behavior is calm, cooperative. Pain: jh6 Complains of pain in right arm Pain currently is 5 out of 10 on a pain scale. Quality of pain is described as aching, tender, Pain began 1 day ago. Is continuous, Alleviated by repositioning, Aggravated by increased activity. Derm: Skin is intact, Reports increased since swelling and pain to rt upper arm. Vital Signs: 12:40 BP 163 / 90; Pulse 105; Resp 18 S; Temp 98.7(TE); Pulse Ox 99% on R/A; Weight 72.57 kg jd3 (R); Height 5 ft. 3 in. (160.02 cm) (R); Pain 5/10; 13:52 BP 129 / 82; Resp 18; Pulse Ox 100% ; ic1 14:33 BP 141 / 88; Pulse 82; Resp 17; Temp 98.4; Pulse Ox 100% ; Pain 0/10; jh6 12:40 Body Mass Index 28.34 (72.57 kg, 160.02 cm) jd3 ED Course: 12:25 Patient arrived in ED. am2 12:26 Zheng Murillo MD is Private Physician. am2 12:28 Nelly Mcclellan, ARIS is Primary Nurse. jh6 12:30 Haylee Ford FNP-C is PHCP. kb 12:30 Yan Ventura MD is Attending Physician. kb 12:36 Bed in low position. Call light in reach. Side rails up X 1. Adult w/ patient. jh6 12:37 Triage completed. jd3 12:41 Arm band placed on. jd3 13:31 Doppler at bedside. jh6 13:56 UPPER EXTREMITY VENOUS UNILATE In Process Unspecified. EDMS 14:35 No provider procedures requiring assistance completed. IV discontinued, intact, jh6 bleeding controlled, No redness/swelling at site. Pressure dressing applied. Administered Medications: 12:57 Drug: Clindamycin 900 mg Route: IVPB; Infused Over: 30 mins; Site: left antecubital; jh6 14:36 Follow up: IV Status: Completed infusion jh6 13:00 Drug: Rocephin (cefTRIAXone) 1 grams Route: IV; Rate: calculated rate; Site: left 6 antecubital; 13:21 Follow up: IV Status: Completed infusion jh6 14:36 Follow up: IV Status: Completed infusion [facility] Outcome: 14:24 Discharge ordered by . kb 14:37 Discharged to home ambulatory. [facility] 14:37 Condition: good 14:37 Discharge instructions given to patient, Instructed on discharge instructions, follow up and referral plans. Demonstrated understanding of instructions, follow-up care, medications, Prescriptions given X 1. 14:46 Patient left the ED. jh6 Signatures: Dispatcher [employer] EDDC Haylee Ford, PIERCING MACHINE OPERATOR-C PIERCING MACHINE OPERATOR-CkCaitlin Felix Jonathon RN RN jd3 Nelly Mcclellan RN RN jh6 Janeth Anthony RN RN ic1
--- NOTE | 2021-09-07 14:25 | EDPHYS ---
Physician Documentation [facility] Name: Jerilyn Johnson Age: 56 yrs Sex: Female : 1965 Arrival Date: 09/07/2021 Time: 12:25 Bed 18 Private MD: Zheng Murillo ED Physician Yan Ventura HPI: 09/07 12:41 This 56 yrs old Female presents to ER via Ambulatory with complaints of Arm Pain - kb swelling. 12:41 The patient presents with cellulitis of the right arm. Description: erythematous, hot, kb swollen. Onset: The symptoms/episode began/occurred yesterday. Possible cause(s): unknown. Associated signs and symptoms: Pertinent positives: erythema, swelling, Pertinent negatives: discharge, drainage, foreign body sensation, fever, headache, nausea, shortness of breath, vomiting. Modifying factors: the symptoms are alleviated by nothing, the symptoms are aggravated by touching. Severity of symptoms: At their worst the symptoms were moderate, in the emergency department the symptoms are unchanged. The patient has experienced similar episodes in the past, multiple times. The patient has not recently seen a physician. Pt reports RUE cellulitis that started yesterday. States she normally has to come in and get admitted for IV antibiotics. . Historical: - Allergies: 12:37 Sulfa; jd3 12:37 Levaquin IV; jd3 12:37 Phenergan; jd3 12:37 codein; jd3 - Home Meds: 12:37 Lexapro 20 mg Oral tab [Active]; Protonix 40 mg Oral grps [Active]; Adderall oral jd3 [Active]; - PMHx: 12:54 GERD; Anxiety; ADD/ADHD; cellulitis; jd3 - PSHx: 12:37 Lumpectomy of breast; jd3 - Immunization history:: Adult Immunizations up to date, Client reports receiving the 2nd dose of the Covid vaccine, Pneumococcal vaccine is up to date, Flu vaccine is up to date. . - Social history:: Smoking status: Patient reports the use of cigarette tobacco products, smokes one-half pack cigarettes per day. ROS: 12:40 Constitutional: Negative for fever, chills, and weight loss. kb 12:40 MS/extremity: Positive for erythema, pain, swelling, tenderness. 12:40 Skin: Positive for cellulitis, of the right arm. 12:40 All other systems are negative. Exam: 12:40 Constitutional: This is a well developed, well nourished patient who is awake, alert, kb and in no acute distress. Head/Face: Normocephalic, atraumatic. ENT: Moist Mucous membranes Cardiovascular: Regular rate and rhythm with a normal S1 and S2. No gallops, murmurs, or rubs. No pulse deficits. Respiratory: Respirations even and unlabored. No increased work of breathing. Talking in full sentences MS/ Extremity: Pulses equal, no cyanosis. Neurovascular intact. Full, normal range of motion. Neuro: Awake and alert, GCS 15, oriented to person, place, time, and situation. Moves all extremities. Normal gait. Psych: Awake, alert, with orientation to person, place and time. Behavior, mood, and affect are within normal limits. 12:40 Skin: cellulitis, that is moderate, on the right arm. Vital Signs: 12:40 BP 163 / 90; Pulse 105; Resp 18 S; Temp 98.7(TE); Pulse Ox 99% on R/A; Weight 72.57 kg jd3 (R); Height 5 ft. 3 in. (160.02 cm) (R); Pain 5/10; 13:52 BP 129 / 82; Resp 18; Pulse Ox 100% ; ic1 14:33 BP 141 / 88; Pulse 82; Resp 17; Temp 98.4; Pulse Ox 100% ; Pain 0/10; jh6 12:40 Body Mass Index 28.34 (72.57 kg, 160.02 cm) jd3 MDM: 12:30 Patient medically screened. kb 12:40 Data reviewed: vital signs, nurses notes. Data interpreted: Pulse oximetry: on room air kb is 100 %. Interpretation: normal. 14:19 Counseling: I had a detailed discussion with the patient and/or guardian regarding: the historical points, exam findings, and any diagnostic results supporting the discharge/admit diagnosis, lab results, radiology results, the need for outpatient follow up, a family practitioner, to return to the emergency department if symptoms worsen or persist or if there are any questions or concerns that arise at home. 14:20 Data reviewed: I have discussed the patient's presentation/case with the attending Emergency Department Physician;. 09/07 12:32 Order name: CBC with Diff kb 09/07 12:32 Order name: Basic Metabolic Panel; Complete Time: 13:31 kb 09/07 12:32 Order name: Blood Culture Adult (2) kb 09/07 12:32 Order name: Lactate; Complete Time: 13:31 kb 09/07 12:32 Order name: Procal; Complete Time: 13:31 kb 09/07 12:32 Order name: CBC with Automated Diff; Complete Time: 13:00 EDMS 09/07 12:32 Order name: IV Start kb 09/07 12:58 Order name: Labs - recollect needed: recollect the lactic acid/ wrong time; Complete eb Time: 13:21 09/07 13:56 Order name: UPPER EXTREMITY VENOUS UNILATE; Complete Time: 14:19 EDMS Administered Medications: 12:57 Drug: Clindamycin 900 mg Route: IVPB; Infused Over: 30 mins; Site: left antecubital; [facility] 14:36 Follow up: IV Status: Completed infusion [facility] 13:00 Drug: Rocephin (cefTRIAXone) 1 grams Route: IV; Rate: calculated rate; Site: left [facility] antecubital; 13:21 Follow up: IV Status: Completed infusion [facility] 14:36 Follow up: IV Status: Completed infusion [facility] Disposition: 18:51 Co-signature as Attending Physician, Yan Ventura MD I agree with the assessment and rn plan of care. Attestation: The patient's history, exam findings, diagnostics, and a summary of any interventions or procedures was reviewed in detail with Haylee COATES. Disposition Summary: 09/07/21 14:24 Discharge Ordered Location: Home kb Condition: Stable kb Diagnosis - Cellulitis of right upper limb kb Followup: kb - With: Emergency Department - When: As needed - Reason: Worsening of condition Followup: kb - With: Private Physician - When: 2 - 3 days - Reason: Recheck today's complaints, Continuance of care, Re-evaluation by your physician Discharge Instructions: - Discharge Summary Sheet kb - Cellulitis, Adult, [id number] kb Forms: - Medication Reconciliation Form kb - Thank You Letter kb - Antibiotic Education kb - Prescription Opioid Use kb Prescriptions: - Clindamycin HCl 300 mg Oral Capsule - take 1 capsule by ORAL route every 6 hours for 10 days; 40 capsule; Refills: 0, kb Product Selection Permitted - cefdinir 300 mg Oral capsule - take 1 capsule by ORAL route every 12 hours for 10 days; 20 capsule; Refills: kb 0, Product Selection Permitted Signatures: Dispatcher [employer] EDHaylee Sullivan, GARMENT CUTTER-C GARMENT CUTTER-Yan Olguin MD MD rn Davies, Jonathon RN RN jd3 Shannan Garcia Jennifer, RN RN jh6 Corrections: (The following items were deleted from the chart) 13:56 12:33 Extremity Venous [email or web address] ordered. EDMS EDMS
[2021-09-07 14:52] VITALS: O2SAT 100
[2021-09-07 14:53] VITALS: BP 141/88; TEMP 98.4
== END 2021-09-07 14:46 | disposition home or self-care (01) ==
LOC: ER 12:21
DX: L03.113 Cellulitis of right upper limb (principal); F41.9 Anxiety disorder, unspecified; F17.210 Nicotine dependence, cigarettes, uncomplicated; Z88.1 Allergy status to other antibiotic agents; Z88.2 Allergy status to sulfonamides; Z88.5 Allergy status to narcotic agent; Z88.8 Allergy status to other drugs, medicaments and biological substances
CPT/HCPCS: 36415; 80048; 83605; 84145; 85025; 87040; 93971; 96365; 99283